=== PATIENT | female | born 1980 | race Caucasian/White ===

== ENCOUNTER 2018-02-15 11:52 | Inpatient (IN) ==
--- NOTE | 2018-02-15 12:02 | Emergency Department Note ---
Disposition Clinical Impression: Suicidal ideation, Homicidal ideation Disposition: Admitted As Inpatient Condition: Fair Time of Disposition: 16:33 General Adult HPI - General Stated complaint: Hasn't been taking meds Time Seen by Provider: 02/15/18 12:00 Source: patient Mode of arrival: ambulatory Limitations: no limitations Nursing Notes Reviewed: Yes Vital Signs Reviewed: Yes - History of Present Illness HPI Narrative: I have re-performed and reviewed the history documented by the medical student, and I confirm its accuracy except as noted below Onset (ago): day(s) Consistency: constant Improves with: nothing Worsens with: nothing Associated symptoms: Reports: denies other symptoms. Denies: chest pain, cough , fever/chills, malaise, nausea/vomiting, shortness of breath, weakness Treatments Prior to Arrival: none - Related Data Home Medications Medication Instructions Recorded Confirmed No Known Home Drugs 02/15/18 02/15/18 Allergies Allergy/AdvReac Type Severity Reaction Status Date / Time No Known Allergies Allergy Verified 02/15/18 16:21 All systems ED: reviewed and negative except as stated. Past Medical History - Past Medical History Attestation: Yes The following information was validated with the patient. 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 - Social History Smoking Status: Current every day smoker Smokeless Tobacco Status: No Alcohol use: Reports: occasionally Drug use: Reports: none Physical Exam - General Limitations: no limitations General appearance: alert, in no apparent distress - Head Head exam: atraumatic, normocephalic, normal inspection - Eye Eye exam: Present: EOMI - ENT ENT exam: normal exam, normal oropharynx, mucous membranes moist - Neck Neck exam: Present: normal inspection, full ROM, trachea midline - Chest Chest inspection: Present: normal inspection, symmetric chest wall rise - Respiratory Respiratory exam: Present: normal lung sounds bilaterally - Cardiovascular Cardiovascular exam: Present: regular rate, normal rhythm, normal heart sounds - Abdominal Exam Abdominal exam: Present: soft, Non-Tender. Absent: tenderness, distention, guarding, rebound, rigidity - Extremities Exam Extremities exam: Present: normal inspection, full ROM. Absent: tenderness, pedal edema - Back Exam Back exam: Present: normal inspection, full ROM. Absent: tenderness - Neurological Exam Neurological exam: Present: alert, oriented X3 - Psychiatric Psychiatric exam: Present: normal affect, normal mood - Skin Skin exam: Present: warm, dry, intact, normal color Course Course Narrative: Patient seen and examined. Patient very withdrawn during my conversation with her. Admits to suicidal and homicidal ideation. No plan. Patient has had prior admissions to as well as to other hospitals. Patient has been off her medications for the last several months. We will medically clear and discussed with psychiatry 1A - Reevaluation(s) Reevaluation #1: Patient has been medically cleared. Psychiatry was done to the bedside to see the patient. States she will be admitted. Admission order has been placed. They have requested her to have Benadryl 50 mg, Ativan 2 mg, Haldol 5 mg, orally. Time: 16:32 Vital Signs Temperature 98.5 F 02/15/18 11:54 Pulse Rate 82 02/15/18 11:54 Respiratory Rate 16 02/15/18 11:54 Blood Pressure 111/74 02/15/18 11:54 O2 Sat by Pulse Oximetry 98 02/15/18 11:54 Temperature 98.5 F 02/15/18 11:54 Pulse Rate 82 02/15/18 11:54 Respiratory Rate 16 02/15/18 11:54 Blood Pressure 111/74 02/15/18 11:54 O2 Sat by Pulse Oximetry 98 02/15/18 11:54 Oxygen Delivery Oxygen Delivery Room Air Medical Decision Making - Medical Records Medical records reviewed: Yes I reviewed the patient's medical records. - Lab Data Lab results reviewed: Yes I reviewed the patient's lab results. Result diagrams: 02/15/18 12:07 02/15/18 12:07 Lab Results 02/15/18 02/15/18 02/15/18 Range/Units 12:07 12:07 12:15 WBC 8.4 (4.3-11.1) K/mcL RBC 4.26 (3.82-4.97) M/mcL Hgb 14.6 (11.5-15.4) g/dL Hct 41.1 (35.3-44.9) % MCV 96.5 (83.0-100.0) fL MCH 34.3 H (28.0-33.3) pg MCHC 35.5 (31.6-35.5) g/dL RDW 11.9 (11.5-14.5) % Plt Count 317 (140-400) K/mcL MPV 9.4 (9.4-12.4) fL Immature Gran % 0.1 (0-4) % Seg Neutrophils % 59.4 % Lymphocytes % 28.7 % Monocytes % 9.0 % Eosinophils % 2.4 % Basophils % 0.4 % Neutrophils # 5.0 (1.6-8.9) K/mcL Lymphocytes # 2.4 (0.6-4.6) K/mcL Monocytes # 0.8 (0.0-1.3) K/mcL Eosinophils # 0.2 (0.0-0.6) K/mcL Basophils # 0.0 (0.0-0.2) K/mcL Sodium 137 (136-145) mEq/L Potassium 4.4 (3.5-5.1) mEq/L Chloride 107 (98-107) mEq/L Carbon Dioxide 24 (23-29) mEq/L BUN 10 (6-20) mg/dL Creatinine 0.78 (0.60-1.20) mg/dL Est GFR ( Amer) > 60 (> 60) Est GFR (Non-Af Amer) > 60 (> 60) BUN/Creatinine Ratio 13 (6-26) Glucose 84 (70-105) mg/dL Calculated Osmolality 282 (280-300) Calcium 9.3 (8.6-10.3) mg/dL TSH 0.565 (0.340-5.600) mcIU/mL Urine Color Dark Yellow (Yellow) Urine Clarity Slightly Hazy (Clear) Urine pH 6.5 (5.0-8.0) pH Units Ur Specific [place] > 1.030 H (1.010-1.025) Urine Protein Trace (Neg-Trace) mg/dL Urine Glucose (UA) Normal (Normal) mg/dL Urine Ketones 80 H (Negative) mg/dL Urine Blood Negative (Negative) Urine Nitrite Negative (Negative) Urine Bilirubin Small H (Negative) Urine Urobilinogen Normal (Normal) mg/dL Ur Leukocyte Esterase Small H (Negative) Urine Microscopic RBC 5-15 H (0-3) per hpf Urine Microscopic WBC 5-15 H (0-3) per hpf Ur Squamous Epith Cells Many H (None-Few) per lpf Urine Bacteria Few (None-Few) per hpf Hyaline Casts None Seen (None-Few) per lpf Salicylates < 2.5 L (15.0-30.0) mg/dL Urine Opiates Screen (Hnjchd=992) ng/mL Acetaminophen < 10 L (10-20) mcg/mL Ur Barbiturates Screen (Kwembv=279) ng/mL Ur Phencyclidine Scrn (Cutoff=25) ng/mL Ur Amphetamines Screen (Owcurs=3305) ng/mL U Benzodiazepines Scrn (Eiklzu=174) ng/mL Urine Cocaine Screen (Cutoff= 300) ng/mL U Marijuana (THC) Screen (Cutoff = 50) ng/mL Ur Drug Screen Interp Ethyl Alcohol < 10 (Less than 10) mg/dL 02/15/18 Range/Units 12:17 WBC (4.3-11.1) K/mcL RBC (3.82-4.97) M/mcL Hgb (11.5-15.4) g/dL Hct (35.3-44.9) % MCV (83.0-100.0) fL MCH (28.0-33.3) pg MCHC (31.6-35.5) g/dL RDW (11.5-14.5) % Plt Count (140-400) K/mcL MPV (9.4-12.4) fL Immature Gran % (0-4) % Seg Neutrophils % % Lymphocytes % % Monocytes % % Eosinophils % % Basophils % % Neutrophils # (1.6-8.9) K/mcL Lymphocytes # (0.6-4.6) K/mcL Monocytes # (0.0-1.3) K/mcL Eosinophils # (0.0-0.6) K/mcL Basophils # (0.0-0.2) K/mcL Sodium (136-145) mEq/L Potassium (3.5-5.1) mEq/L Chloride (98-107) mEq/L Carbon Dioxide (23-29) mEq/L BUN (6-20) mg/dL Creatinine (0.60-1.20) mg/dL Est GFR ( Amer) (> 60) Est GFR (Non-Af Amer) (> 60) BUN/Creatinine Ratio (6-26) Glucose (70-105) mg/dL Calculated Osmolality (280-300) Calcium (8.6-10.3) mg/dL TSH (0.340-5.600) mcIU/mL Urine Color (Yellow) Urine Clarity (Clear) Urine pH (5.0-8.0) pH Units Ur Specific [place] (1.010-1.025) Urine Protein (Neg-Trace) mg/dL Urine Glucose (UA) (Normal) mg/dL Urine Ketones (Negative) mg/dL Urine Blood (Negative) Urine Nitrite (Negative) Urine Bilirubin (Negative) Urine Urobilinogen (Normal) mg/dL Ur Leukocyte Esterase (Negative) Urine Microscopic RBC (0-3) per hpf Urine Microscopic WBC (0-3) per hpf Ur Squamous Epith Cells (None-Few) per lpf Urine Bacteria (None-Few) per hpf Hyaline Casts (None-Few) per lpf Salicylates (15.0-30.0) mg/dL Urine Opiates Screen Negative (Iqnmws=233) ng/mL Acetaminophen (10-20) mcg/mL Ur Barbiturates Screen Negative (Azxtnp=067) ng/mL Ur Phencyclidine Scrn Negative (Cutoff=25) ng/mL Ur Amphetamines Screen Negative (Ndtjwz=2331) ng/mL U Benzodiazepines Scrn Negative (Txvakz=428) ng/mL Urine Cocaine Screen Negative (Cutoff= 300) ng/mL U Marijuana (THC) Screen Positive H (Cutoff = 50) ng/mL Ur Drug Screen Interp See Below Ethyl Alcohol (Less than 10) mg/dL
--- NOTE | 2018-02-15 12:02 | Emergency Department Note ---
Disposition Clinical Impression: Suicidal ideation, Homicidal ideation Disposition: Admitted As Inpatient Condition: Fair General Adult HPI - General Stated complaint: Hasn't been taking meds Time Seen by Provider: 02/15/18 12:00 - Related Data Home Medications Medication Instructions Recorded Confirmed No Known Home Drugs 02/15/18 02/15/18 Allergies Allergy/AdvReac Type Severity Reaction Status Date / Time No Known Allergies Allergy Verified 02/15/18 16:21 Past Medical History - Past Medical History Medical history: Reports: no medical history Surgical history: Reports: other Psychiatric history: Reports: anxiety, bipolar, depression, panic disorder, PTSD , schizophrenia, 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 - Social History Smoking Status: Current every day smoker Smokeless Tobacco Status: No Alcohol use: Reports: occasionally Drug use: Reports: none Course Vital Signs Temperature 98.5 F 02/15/18 11:54 Pulse Rate 82 02/15/18 11:54 Respiratory Rate 16 02/15/18 11:54 Blood Pressure 111/74 02/15/18 11:54 O2 Sat by Pulse Oximetry 98 02/15/18 11:54 Temperature 98.5 F 02/15/18 11:54 Pulse Rate 82 02/15/18 11:54 Respiratory Rate 16 02/15/18 11:54 Blood Pressure 111/74 02/15/18 11:54 O2 Sat by Pulse Oximetry 98 02/15/18 11:54 Oxygen Delivery Oxygen Delivery Room Air Medical Decision Making - Lab Data Result diagrams: 02/15/18 12:07 02/15/18 12:07 Lab Results 02/15/18 02/15/18 02/15/18 Range/Units 12:07 12:07 12:15 WBC 8.4 (4.3-11.1) K/mcL RBC 4.26 (3.82-4.97) M/mcL Hgb 14.6 (11.5-15.4) g/dL Hct 41.1 (35.3-44.9) % MCV 96.5 (83.0-100.0) fL MCH 34.3 H (28.0-33.3) pg MCHC 35.5 (31.6-35.5) g/dL RDW 11.9 (11.5-14.5) % Plt Count 317 (140-400) K/mcL MPV 9.4 (9.4-12.4) fL Immature Gran % 0.1 (0-4) % Seg Neutrophils % 59.4 % Lymphocytes % 28.7 % Monocytes % 9.0 % Eosinophils % 2.4 % Basophils % 0.4 % Neutrophils # 5.0 (1.6-8.9) K/mcL Lymphocytes # 2.4 (0.6-4.6) K/mcL Monocytes # 0.8 (0.0-1.3) K/mcL Eosinophils # 0.2 (0.0-0.6) K/mcL Basophils # 0.0 (0.0-0.2) K/mcL Sodium 137 (136-145) mEq/L Potassium 4.4 (3.5-5.1) mEq/L Chloride 107 (98-107) mEq/L Carbon Dioxide 24 (23-29) mEq/L BUN 10 (6-20) mg/dL Creatinine 0.78 (0.60-1.20) mg/dL Est GFR ( Amer) > 60 (> 60) Est GFR (Non-Af Amer) > 60 (> 60) BUN/Creatinine Ratio 13 (6-26) Glucose 84 (70-105) mg/dL Calculated Osmolality 282 (280-300) Calcium 9.3 (8.6-10.3) mg/dL TSH 0.565 (0.340-5.600) mcIU/mL Urine Color Dark Yellow (Yellow) Urine Clarity Slightly Hazy (Clear) Urine pH 6.5 (5.0-8.0) pH Units Ur Specific [place] > 1.030 H (1.010-1.025) Urine Protein Trace (Neg-Trace) mg/dL Urine Glucose (UA) Normal (Normal) mg/dL Urine Ketones 80 H (Negative) mg/dL Urine Blood Negative (Negative) Urine Nitrite Negative (Negative) Urine Bilirubin Small H (Negative) Urine Urobilinogen Normal (Normal) mg/dL Ur Leukocyte Esterase Small H (Negative) Urine Microscopic RBC 5-15 H (0-3) per hpf Urine Microscopic WBC 5-15 H (0-3) per hpf Ur Squamous Epith Cells Many H (None-Few) per lpf Urine Bacteria Few (None-Few) per hpf Hyaline Casts None Seen (None-Few) per lpf Salicylates < 2.5 L (15.0-30.0) mg/dL Urine Opiates Screen (Ckhezp=716) ng/mL Acetaminophen < 10 L (10-20) mcg/mL Ur Barbiturates Screen (Woaduq=801) ng/mL Ur Phencyclidine Scrn (Cutoff=25) ng/mL Ur Amphetamines Screen (Pnolue=1456) ng/mL U Benzodiazepines Scrn (Zrqgdx=776) ng/mL Urine Cocaine Screen (Cutoff= 300) ng/mL U Marijuana (THC) Screen (Cutoff = 50) ng/mL Ur Drug Screen Interp Ethyl Alcohol < 10 (Less than 10) mg/dL 02/15/18 Range/Units 12:17 WBC (4.3-11.1) K/mcL RBC (3.82-4.97) M/mcL Hgb (11.5-15.4) g/dL Hct (35.3-44.9) % MCV (83.0-100.0) fL MCH (28.0-33.3) pg MCHC (31.6-35.5) g/dL RDW (11.5-14.5) % Plt Count (140-400) K/mcL MPV (9.4-12.4) fL Immature Gran % (0-4) % Seg Neutrophils % % Lymphocytes % % Monocytes % % Eosinophils % % Basophils % % Neutrophils # (1.6-8.9) K/mcL Lymphocytes # (0.6-4.6) K/mcL Monocytes # (0.0-1.3) K/mcL Eosinophils # (0.0-0.6) K/mcL Basophils # (0.0-0.2) K/mcL Sodium (136-145) mEq/L Potassium (3.5-5.1) mEq/L Chloride (98-107) mEq/L Carbon Dioxide (23-29) mEq/L BUN (6-20) mg/dL Creatinine (0.60-1.20) mg/dL Est GFR ( Amer) (> 60) Est GFR (Non-Af Amer) (> 60) BUN/Creatinine Ratio (6-26) Glucose (70-105) mg/dL Calculated Osmolality (280-300) Calcium (8.6-10.3) mg/dL TSH (0.340-5.600) mcIU/mL Urine Color (Yellow) Urine Clarity (Clear) Urine pH (5.0-8.0) pH Units Ur Specific [place] (1.010-1.025) Urine Protein (Neg-Trace) mg/dL Urine Glucose (UA) (Normal) mg/dL Urine Ketones (Negative) mg/dL Urine Blood (Negative) Urine Nitrite (Negative) Urine Bilirubin (Negative) Urine Urobilinogen (Normal) mg/dL Ur Leukocyte Esterase (Negative) Urine Microscopic RBC (0-3) per hpf Urine Microscopic WBC (0-3) per hpf Ur Squamous Epith Cells (None-Few) per lpf Urine Bacteria (None-Few) per hpf Hyaline Casts (None-Few) per lpf Salicylates (15.0-30.0) mg/dL Urine Opiates Screen Negative (Hnuvqc=576) ng/mL Acetaminophen (10-20) mcg/mL Ur Barbiturates Screen Negative (Obspgw=415) ng/mL Ur Phencyclidine Scrn Negative (Cutoff=25) ng/mL Ur Amphetamines Screen Negative (Ddvqhv=9709) ng/mL U Benzodiazepines Scrn Negative (Asqhnw=289) ng/mL Urine Cocaine Screen Negative (Cutoff= 300) ng/mL U Marijuana (THC) Screen Positive H (Cutoff = 50) ng/mL Ur Drug Screen Interp See Below Ethyl Alcohol (Less than 10) mg/dL Attestation Statement - Attestation Attestation: I examined this patient and my medical decision-making was reviewed with the INSTRUCTOR DRAMATIC ARTS/PA/Advanced Practice Nurse/Resident Physician. I agree with the documented findings, disposition and treatment plan as described except to the extent set forth below. I did see the patient immediately upon arrival and also spoke with paramedics. I saw her in the [facility]. I did speak with her. Does have suicidal ideation. History of schizophrenia and has not taken any medications in the last 2 months. Reportedly lives in [place] but was picked up today at her stepmother' s house. She is resting comfortably, breathing comfortably, skin is pink. Initially told me she did try to end her life today then told another caregiver that she did not. Further evaluation in progress. [id number]
--- NOTE | 2018-02-15 12:15 | Emergency Department Note ---
Disposition Clinical Impression: Suicidal ideation, Homicidal ideation Disposition: Admitted As Inpatient Condition: Fair General Adult HPI - General Chief complaint: ED Psychiatric Symptoms Stated complaint: Hasn't been taking meds Time Seen by Provider: 02/15/18 12:00 Source: patient Mode of arrival: ambulatory Limitations: no limitations - History of Present Illness HPI Narrative: Pt is a 38 year old female with past psych history significant for schizophrenia , bipolar, PTSD, anxiety that presents from home for suicidal and homicidal ideations. Pt reports that she has not been taking her medications for approximately 2 months as she ran out of them. Per family report, pt has been hiding knives around the house and has been stating that she wants to kill herself and others. Pt reportedly tried to harm herself this morning, unknown how she tried to do this and she denies trying to hurt herself at this time. She does state that she wishes to kill herself, but does not have a plan. Denies history of any suicide attempts. Pt also states that she wishes to kill other people, although she states she has no specific person in mind and has no plan. Denies visual or auditory hallucinations. Pt admits to smoking marijuana this morning but denies other drugs or alcohol consumption. Pain Scale: 0 - Related Data Home Medications Medication Instructions Recorded Confirmed No Known Home Drugs 02/15/18 02/15/18 Allergies Allergy/AdvReac Type Severity Reaction Status Date / Time No Known Allergies Allergy Verified 02/15/18 16:21 All systems ED: reviewed and negative except as stated. Neurological: Reports: headache Psychiatric: Reports: anxiety, depression, suicidal thoughts, homicidal thoughts. Denies: auditory hallucinations, visual hallucinations Past Medical History - Past Medical History Medical history: Reports: no medical history Surgical history: Reports: other Psychiatric history: Reports: anxiety, bipolar, depression, panic disorder, PTSD , schizophrenia, other DISH UP PERSON history: Reports: no DISH UP PERSON history - Social History Smoking Status: Current every day smoker Smokeless Tobacco Status: No Alcohol use: Reports: occasionally Drug use: Reports: none Physical Exam - General Limitations: no limitations General appearance: alert, in no apparent distress - Head Head exam: atraumatic, normocephalic - Respiratory Respiratory exam: Present: normal lung sounds bilaterally. Absent: respiratory distress, wheezes - Cardiovascular Cardiovascular exam: Present: regular rate, normal rhythm - Abdominal Exam Abdominal exam: Present: soft, Non-Tender - Neurological Exam Neurological exam: Present: alert, oriented X3 - Psychiatric Psychiatric exam: Present: depressed, flat affect, homicidal ideation, suicidal ideation. Absent: agitated, anxious, manic - Skin Skin exam: Present: warm, dry, intact Course Vital Signs Temperature 98.5 F 02/15/18 11:54 Pulse Rate 82 02/15/18 11:54 Respiratory Rate 16 02/15/18 11:54 Blood Pressure 111/74 02/15/18 11:54 O2 Sat by Pulse Oximetry 98 02/15/18 11:54 Temperature 98.5 F 02/15/18 11:54 Pulse Rate 82 02/15/18 11:54 Respiratory Rate 16 02/15/18 11:54 Blood Pressure 111/74 02/15/18 11:54 O2 Sat by Pulse Oximetry 98 02/15/18 11:54 Oxygen Delivery Oxygen Delivery Room Air Medical Decision Making - Lab Data Result diagrams: 02/15/18 12:07 02/15/18 12:07 Lab Results 02/15/18 02/15/18 02/15/18 Range/Units 12:07 12:07 12:15 WBC 8.4 (4.3-11.1) K/mcL RBC 4.26 (3.82-4.97) M/mcL Hgb 14.6 (11.5-15.4) g/dL Hct 41.1 (35.3-44.9) % MCV 96.5 (83.0-100.0) fL MCH 34.3 H (28.0-33.3) pg MCHC 35.5 (31.6-35.5) g/dL RDW 11.9 (11.5-14.5) % Plt Count 317 (140-400) K/mcL MPV 9.4 (9.4-12.4) fL Immature Gran % 0.1 (0-4) % Seg Neutrophils % 59.4 % Lymphocytes % 28.7 % Monocytes % 9.0 % Eosinophils % 2.4 % Basophils % 0.4 % Neutrophils # 5.0 (1.6-8.9) K/mcL Lymphocytes # 2.4 (0.6-4.6) K/mcL Monocytes # 0.8 (0.0-1.3) K/mcL Eosinophils # 0.2 (0.0-0.6) K/mcL Basophils # 0.0 (0.0-0.2) K/mcL Sodium 137 (136-145) mEq/L Potassium 4.4 (3.5-5.1) mEq/L Chloride 107 (98-107) mEq/L Carbon Dioxide 24 (23-29) mEq/L BUN 10 (6-20) mg/dL Creatinine 0.78 (0.60-1.20) mg/dL Est GFR ( Amer) > 60 (> 60) Est GFR (Non-Af Amer) > 60 (> 60) BUN/Creatinine Ratio 13 (6-26) Glucose 84 (70-105) mg/dL Calculated Osmolality 282 (280-300) Calcium 9.3 (8.6-10.3) mg/dL TSH 0.565 (0.340-5.600) mcIU/mL Urine Color Dark Yellow (Yellow) Urine Clarity Slightly Hazy (Clear) Urine pH 6.5 (5.0-8.0) pH Units Ur Specific [place] > 1.030 H (1.010-1.025) Urine Protein Trace (Neg-Trace) mg/dL Urine Glucose (UA) Normal (Normal) mg/dL Urine Ketones 80 H (Negative) mg/dL Urine Blood Negative (Negative) Urine Nitrite Negative (Negative) Urine Bilirubin Small H (Negative) Urine Urobilinogen Normal (Normal) mg/dL Ur Leukocyte Esterase Small H (Negative) Urine Microscopic RBC 5-15 H (0-3) per hpf Urine Microscopic WBC 5-15 H (0-3) per hpf Ur Squamous Epith Cells Many H (None-Few) per lpf Urine Bacteria Few (None-Few) per hpf Hyaline Casts None Seen (None-Few) per lpf Salicylates < 2.5 L (15.0-30.0) mg/dL Urine Opiates Screen (Kgjnpw=516) ng/mL Acetaminophen < 10 L (10-20) mcg/mL Ur Barbiturates Screen (Mntvwo=234) ng/mL Ur Phencyclidine Scrn (Cutoff=25) ng/mL Ur Amphetamines Screen (Lhbxpg=2231) ng/mL U Benzodiazepines Scrn (Xuacnq=340) ng/mL Urine Cocaine Screen (Cutoff= 300) ng/mL U Marijuana (THC) Screen (Cutoff = 50) ng/mL Ur Drug Screen Interp Ethyl Alcohol < 10 (Less than 10) mg/dL 02/15/18 Range/Units 12:17 WBC (4.3-11.1) K/mcL RBC (3.82-4.97) M/mcL Hgb (11.5-15.4) g/dL Hct (35.3-44.9) % MCV (83.0-100.0) fL MCH (28.0-33.3) pg MCHC (31.6-35.5) g/dL RDW (11.5-14.5) % Plt Count (140-400) K/mcL MPV (9.4-12.4) fL Immature Gran % (0-4) % Seg Neutrophils % % Lymphocytes % % Monocytes % % Eosinophils % % Basophils % % Neutrophils # (1.6-8.9) K/mcL Lymphocytes # (0.6-4.6) K/mcL Monocytes # (0.0-1.3) K/mcL Eosinophils # (0.0-0.6) K/mcL Basophils # (0.0-0.2) K/mcL Sodium (136-145) mEq/L Potassium (3.5-5.1) mEq/L Chloride (98-107) mEq/L Carbon Dioxide (23-29) mEq/L BUN (6-20) mg/dL Creatinine (0.60-1.20) mg/dL Est GFR ( Amer) (> 60) Est GFR (Non-Af Amer) (> 60) BUN/Creatinine Ratio (6-26) Glucose (70-105) mg/dL Calculated Osmolality (280-300) Calcium (8.6-10.3) mg/dL TSH (0.340-5.600) mcIU/mL Urine Color (Yellow) Urine Clarity (Clear) Urine pH (5.0-8.0) pH Units Ur Specific [place] (1.010-1.025) Urine Protein (Neg-Trace) mg/dL Urine Glucose (UA) (Normal) mg/dL Urine Ketones (Negative) mg/dL Urine Blood (Negative) Urine Nitrite (Negative) Urine Bilirubin (Negative) Urine Urobilinogen (Normal) mg/dL Ur Leukocyte Esterase (Negative) Urine Microscopic RBC (0-3) per hpf Urine Microscopic WBC (0-3) per hpf Ur Squamous Epith Cells (None-Few) per lpf Urine Bacteria (None-Few) per hpf Hyaline Casts (None-Few) per lpf Salicylates (15.0-30.0) mg/dL Urine Opiates Screen Negative (Hcnyqe=708) ng/mL Acetaminophen (10-20) mcg/mL Ur Barbiturates Screen Negative (Rxeeyo=041) ng/mL Ur Phencyclidine Scrn Negative (Cutoff=25) ng/mL Ur Amphetamines Screen Negative (Judbex=1729) ng/mL U Benzodiazepines Scrn Negative (Ydzozz=874) ng/mL Urine Cocaine Screen Negative (Cutoff= 300) ng/mL U Marijuana (THC) Screen Positive H (Cutoff = 50) ng/mL Ur Drug Screen Interp See Below Ethyl Alcohol (Less than 10) mg/dL
[2018-02-15 12:22] LABS: Basophils % 0.4 %; Eosinophils # 0.2 K/mcL (0.0-0.6); Eosinophils % 2.4 %; Hematocrit 41.1 % (35.3-44.9); Hemoglobin 14.6 g/dL (11.5-15.4); Immature Granulocytes % 0.1 % (0-4); Lymphocytes # 2.4 K/mcL (0.6-4.6); Lymphocytes % 28.7 %; Mean Corpuscular HGB Conc 35.5 g/dL (31.6-35.5); Mean Corpuscular Hemoglobin 34.3 pg (28.0-33.3); Mean Corpuscular Volume 96.5 fL (83.0-100.0); Mean Platelet Volume 9.4 fL (9.4-12.4); Monocytes # 0.8 K/mcL (0.0-1.3); Platelet Count 317 K/mcL (140-400); Red Blood Count 4.26 M/mcL (3.82-4.97); Red Cell Distribution Width 11.9 % (11.5-14.5); Segmented Neutrophils % 59.4 %
[2018-02-15 12:29] LABS: Bilirubin,Urine Small (Negative); Blood,Urine Negative (Negative); Color,Urine Dark Yellow (Yellow); Glucose,Urine (UA) Normal (Normal); Ketones,Urine 80 mg/dL (Negative); Leukocyte Esterase,Urine Small (Negative); Nitrite,Urine Negative (Negative); PH,Urine 6.5 pH Units (5.0-8.0); Protein,Urine Trace mg/dL (Neg-Trace); Specific Gravity,Urine > 1.030 (1.010-1.025); Urobilinogen,Urine Normal (Normal)
[2018-02-15 12:32] LABS: Bacteria,Urine Few per hpf (None-Few); Hyaline Casts,Urine None Seen per lpf (None-Few); Squamous Epithelial Cell,Urine Many per lpf (None-Few)
[2018-02-15 12:33] LABS: Clarity,Urine Slightly Hazy (Clear)
[2018-02-15 12:46] LABS: Acetaminophen < 10 mcg/mL (10-20); BUN/Creatinine Ratio 13 (6-26); Blood Urea Nitrogen 10 mg/dL (6-20); Calcium 9.3 mg/dL (8.6-10.3); Carbon Dioxide 24 mEq/L (23-29); Chloride 107 mEq/L (98-107); Ethanol < 10 mg/dL (Less than 10); Glucose 84 mg/dL (70-105); Osmolality,Calculated 282 (280-300); Potassium 4.4 mEq/L (3.5-5.1); Salicylate < 2.5 mg/dL (15.0-30.0); Sodium 137 mEq/L (136-145); eGFR For Non-African Americans > 60 (> 60)
[2018-02-15 12:51] LABS: Amphetamine Screen,Urine Negative ng/mL (Cutoff=1000); Barbiturate Screen,Urine Negative ng/mL (Cutoff=200); Benzodiazepines Screen,Urine Negative ng/mL (Cutoff=200); Cannabinoid Screen,Urine Positive ng/mL (Cutoff = 50); Cocaine Screen,Urine Negative ng/mL (Cutoff= 300); Opiate Screen,Urine Negative ng/mL (Cutoff=300); Phencyclidine Screen,Urine Negative ng/mL (Cutoff=25)
[2018-02-15 12:54] LABS: Thyroid Stimulating Hormone 0.565 mcIU/mL (0.340-5.600)
[2018-02-15] MEDS ORDERED: Haloperidol Oral Conc 10 MG/5 ML UDC PO ONE (15:51)
[2018-02-15] MEDS ORDERED: *HR* LORazepam 1 MG TABLET PO ONE (15:51)
[2018-02-15] MEDS ORDERED: *HR* LORazepam 2 MG/ML VIAL IM PRN (19:32)
[2018-02-15] MEDS ORDERED: Acetaminophen 325 MG TABLET PO PRN (19:32)
[2018-02-15] MEDS ORDERED: *HR* LORazepam 1 MG TABLET PO PRN (19:32)
[2018-02-15] MEDS ORDERED: Haloperidol Lactate 5 MG/ML VIAL IM PRN (19:32)
[2018-02-15] MEDS ORDERED: MOM Conc 10 ML UD.LIQ PO PRN (19:32)
[2018-02-15] MEDS ORDERED: Mag Hydrox/Al Hydrox/Simeth 30 ML UDC PO PRN (19:32)
[2018-02-16] MEDS: Nicotine 2 MG GUM BC PRN (08:50)
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
[2018-02-16] MEDS: hydrOXYzine pamoate 25 MG CAPSULE PO PRN (11:31)
[2018-02-16] MEDS: Gabapentin 300 MG CAPSULE PO SCH ×2 (14:05→20:15)
[2018-02-16] MEDS: traZODone 50 MG TABLET PO PRN (20:15)
[2018-02-17] MEDS: Gabapentin 300 MG CAPSULE PO SCH ×3 (08:49→20:06)
[2018-02-17] MEDS: Nicotine 2 MG GUM BC PRN ×2 (08:52→18:54)
--- NOTE | 2018-02-17 09:53 | Psychiatry Progress Note ---
Date of Encounter: 02/17/18 Time of Encounter: 09:48 Subjective Interval history: Client focused on obtaining meds for ADHD today. States her thoughts are scattered and she cannot concentrate or focus. Discussed getting her thought disorder under control first. Client denies AH/VH although she appears psychotic. Also denies SI/HI although she was endorsing both prior to admission. Off meds for a couple of months before coming in. Meds just restarted so will give them time to work. Invega seems to be the primary medication and client told the last provider she would be open to a long acting injection. Working on linkage. History of substance abuse issues. Tox screen only positive for THC this time. Lives with father but he was only able to give perinatal social worker limited additional information. Client appears distressed today. Claims her mind jumps from one topic to the next. Likely experiencing racing thoughts. On several meds so will give them time to take effect. Review of Systems Constitutional: Denies: fever, chills, weakness, weight change Eyes: Denies: eye pain, vision change Ears, Nose, Throat: Denies: ear pain, throat pain, dental pain, hearing loss, congestion Cardiovascular: Denies: chest pain, palpitations, dyspnea on exertion Respiratory: Denies: cough, dyspnea, wheezes Gastrointestinal: Denies: abdominal pain, nausea, vomiting, diarrhea, constipation Musculoskeletal: Denies: joint swelling, joint pain Neurological: Denies: headache, weakness, numbness, memory loss Psychiatric: Reports: depression, anxiety, auditory hallucinations, visual hallucinations, difficulty concentrating Results - Vital Signs Vital Signs: Temp Pulse Resp BP Pulse Ox 97.7 F 88 14 106/59 98 02/17/18 09:00 02/17/18 09:00 02/17/18 09:00 02/17/18 09:00 02/15/18 11:54 Assessment and Plan (1) Schizoaffective disorder Current visit: Yes Status: Acute Plan: Continue hospitalization, Close observation, Suicide Precautions per unit protocol, Encourage participation in unit milieu, Group Therapy, Monitor sleep, Monitor appetite Risks, benefits, side effects, alternatives discussed w/pt: Yes Patient agreeable to treatment: Yes Qualifiers: Schizoaffective disorder type: bipolar Qualified Code(s): F25.0 - Schizoaffective disorder, bipolar type Consult Discharge Plan - Plan Referrals: Jared Bradshaw [facility] [Outside] Psychiatry Exam - Constitutional Vitals: Temp Pulse Resp BP Pulse Ox 97.7 F 88 14 106/59 98 02/17/18 09:00 02/17/18 09:00 02/17/18 09:00 02/17/18 09:00 02/15/18 11:54 General appearance: unkempt, disheveled - Musculoskeletal Gait: normal Station: relaxed Strength & Tone: normal for patient - Psychiatric Patient Orientation: Yes Person, Yes Time, Yes Place Level of alertness: Alert Behavior: anxious, restless Psychomotor activity: Normal Eye Contact: Maintains Eye Contact Mood Description: Irritable Affect description: congruent with mood Speech Volume: Normal Speech pattern: normal rate, normal rhythm, normal tone, fluent, spontaneous Language & Vocabulary: consistent with education Thought Process: Racing Thought Content: No Suicidal ideation, No Homicidal ideation, No Overt delusions Perceptual Disturbances: Yes Reacting to internal stimuli Attention Span Ability: Unable to Focus, Unable to Sustain Attention Memory Description: Grossly Intact Patient Reliability: Questionable Historian Fund of knowledge: Yes average Intelligence Estimate: Average Judgment: Limited Insight: Minimal
[2018-02-17] MEDS: hydrOXYzine pamoate 25 MG CAPSULE PO PRN (10:07)
[2018-02-17] MEDS: traZODone 50 MG TABLET PO PRN (20:06)
[2018-02-18] MEDS: Gabapentin 300 MG CAPSULE PO SCH ×3 (08:47→20:38)
[2018-02-18] MEDS: hydrOXYzine pamoate 25 MG CAPSULE PO PRN (08:48)
[2018-02-18] MEDS: Nicotine 2 MG GUM BC PRN ×3 (08:51→17:56)
[2018-02-18] MEDS ORDERED: Ibuprofen 400 MG TABLET PO PRN (09:51)
--- NOTE | 2018-02-18 09:58 | Psychiatry Progress Note ---
Date of Encounter: 02/18/18 Time of Encounter: 09:53 Subjective Interval history: Client is much clearer today. Staff report she had a good night. No longer looks psychotic. However, she is very med seeking. Today she is focused on getting something for her "nerves." Yesterday she wanted meds for ADHD. Discussed options. Focused on getting benzos but did not get upset when this senior writer said that would not be possible. Client indicated she took Cymbalta in retirement with positive results. Agreeable to switching to that from Zoloft. Also willing to try Buspar even though she reported it did not help much in the past. Asked staff last night when she would be going home but did not seem invested in leaving today when speaking with this senior writer. Since meds are changing will not look at discharge today. Client also very vague as to where she will be going at the time of discharge. Had been living with father but today she reported living with sister. States father and sister live an hour apart and "I don't like talking about family stuff." Still in process of being linked with a provider. Denies SI/HI. May be ready to go early this week. Review of Systems Constitutional: Denies: fever, chills, weakness, weight change Eyes: Denies: eye pain, vision change Ears, Nose, Throat: Denies: ear pain, throat pain, dental pain, hearing loss, congestion Cardiovascular: Denies: chest pain, palpitations, dyspnea on exertion Respiratory: Denies: cough, dyspnea, wheezes Gastrointestinal: Denies: abdominal pain, nausea, vomiting, diarrhea, constipation Musculoskeletal: Denies: joint swelling, joint pain Neurological: Denies: headache, weakness, numbness, memory loss Psychiatric: Reports: depression, anxiety, auditory hallucinations, visual hallucinations, difficulty concentrating Results - Vital Signs Vital Signs: Temp Pulse Resp BP Pulse Ox 97.5 F L 94 14 89/62 98 02/18/18 09:00 02/18/18 09:00 02/18/18 09:00 02/18/18 09:00 02/15/18 11:54 Assessment and Plan (1) Schizoaffective disorder Current visit: Yes Status: Acute Plan: Continue hospitalization, Close observation, Suicide Precautions per unit protocol, Encourage participation in unit milieu, Group Therapy, Monitor sleep, Monitor appetite Risks, benefits, side effects, alternatives discussed w/pt: Yes Patient agreeable to treatment: Yes Qualifiers: Schizoaffective disorder type: bipolar Qualified Code(s): F25.0 - Schizoaffective disorder, bipolar type Consult Discharge Plan - Plan Referrals: Jared Bradshaw [facility] [Outside] Psychiatry Exam - Constitutional Vitals: Temp Pulse Resp BP Pulse Ox 97.5 F L 94 14 89/62 98 02/18/18 09:00 02/18/18 09:00 02/18/18 09:00 02/18/18 09:00 02/15/18 11:54 General appearance: age & developmentally appropriate, unkempt - Musculoskeletal Gait: normal Station: relaxed Strength & Tone: normal for patient - Psychiatric Patient Orientation: Yes Person, Yes Time, Yes Place Level of alertness: Alert Behavior: calm, cooperative Psychomotor activity: Normal Eye Contact: Maintains Eye Contact Mood Description: Depressed, Anxious, Irritable Affect description: congruent with mood Speech Volume: Normal Speech pattern: normal rate, normal rhythm, normal tone, fluent, spontaneous Language & Vocabulary: consistent with education Thought Process: Linear, Goal Oriented Thought Content: No Suicidal ideation, No Homicidal ideation, No Overt delusions Perceptual Disturbances: No Auditory hallucinations, No Visual hallucinations Attention Span Ability: Capable of Focused Attention Memory Description: Grossly Intact Patient Reliability: Questionable Historian Fund of knowledge: Yes abstraction ability, Yes aware of current events Intelligence Estimate: Average Judgment: Limited Insight: Minimal
[2018-02-18] MEDS ORDERED: hydrOXYzine pamoate 25 MG CAPSULE PO PRN (09:59)
[2018-02-18] MEDS: traZODone 50 MG TABLET PO PRN (20:38)
[2018-02-19] MEDS: Gabapentin 300 MG CAPSULE PO SCH (08:48)
[2018-02-19] MEDS: Nicotine 2 MG GUM BC PRN ×2 (08:50→13:33)
[2018-02-19 09:20] VITALS: BP 103/69
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
--- NOTE | 2018-02-19 14:09 | Discharge Summary ---
Date of Encounter: 02/19/18 Time of Encounter: 14:00 Diagnosis - Discharge Diagnosis (1) Opioid dependence in remission Status: Resolved (2) Cocaine dependence in remission Status: Resolved (3) Chronic pain Status: Suspected Qualifiers: Chronic pain type: chronic pain syndrome Qualified Code(s): G89.4 - Chronic pain syndrome (4) Suicidal ideation Priority: Secondary Status: Acute (5) Homicidal ideation Priority: Secondary Status: Acute (6) Schizoaffective disorder Priority: Primary Status: Acute Qualifiers: Schizoaffective disorder type: bipolar Qualified Code(s): F25.0 - Schizoaffective disorder, bipolar type Medications - Discharge Medications Prescriptions: Buspirone HCl [Buspar] 7.5 mg PO BID 30 Days #60 tablet DULoxetine [Cymbalta] 30 mg PO DAILY 30 Days #30 capsule. Gabapentin [Neurontin] 400 mg PO TID 30 Days #90 capsule Paliperidone [Invega] 9 mg PO DAILY 30 Days #30 tab.er.24 Buspirone HCl [Buspar] 7.5 mg PO BID 30 Days #60 tablet 02/19/18 [Rx] DULoxetine [Cymbalta] 30 mg PO DAILY 30 Days #30 capsule. 02/19/18 [Rx] Gabapentin [Neurontin] 400 mg PO TID 30 Days #90 capsule 02/19/18 [Rx] Paliperidone [Invega] 9 mg PO DAILY 30 Days #30 tab.er.24 02/19/18 [Rx] 3 Allergy/AdvReac Type Severity Reaction Status Date / Time No Known Allergies Allergy Verified 02/15/18 16:21 Provider Date of admission: 02/15/18 15:57 Primary care physician: PCP NONE Discharging clinician: Marcello Garces Psychiatry Exam - Constitutional Vitals: Temp Pulse Resp BP Pulse Ox 98.7 F 90 16 103/69 98 02/19/18 09:00 02/19/18 09:00 02/19/18 09:00 02/19/18 09:00 02/15/18 11:54 General appearance: age & developmentally appropriate, well-groomed, well- nourished - Musculoskeletal Gait: normal Station: relaxed Strength & Tone: normal for patient - Psychiatric Patient Orientation: Yes Person, Yes Time, Yes Place Level of alertness: Alert Behavior: calm, cooperative Psychomotor activity: Normal Eye Contact: Maintains Eye Contact Mood Description: Euthymic/stable Affect description: congruent with mood, full range Speech Volume: Normal Speech pattern: normal rate, normal rhythm, normal tone, fluent, spontaneous Language & Vocabulary: consistent with education Thought Process: Linear, Goal Oriented Thought Content: No Suicidal ideation, No Homicidal ideation, No Overt delusions Perceptual Disturbances: Yes Auditory hallucinations, No Visual hallucinations Attention Span Ability: Capable of Focused Attention Memory Description: Grossly Intact Patient Reliability: Questionable Historian Fund of knowledge: Yes below average Intelligence Estimate: Below Average Judgment: Limited Insight: Minimal Hospital Course Hospital course: Ms. Bernard is a 38 year old female The patient met with me in the referred to the discharge summary. To briefly summarize the patient is currently living in [facility]. She plans to reside with her sister Kiera. She plans to take medicines as prescribed the past she was on a long-acting injectable form of paliperidone. The patient plans to keep a clean and sober lifestyle. - Time Spent with Patient Total time spent providing and/or coordinating discharge services: Assessment and Plan - Patient/Caregiver Discharge Instructions Activity: resume usual activities as tolerated Diet: regular diet Additional Instructions: Alcohol and drugs of abuse including Suboxone - Follow up Plan Follow up with: [facility] [Outside] - 02/22/18 10:00 am (The above appointment is with Say, construction representative, to establish you as a client. When you come to your first appointment, you will be completing paperwork, meeting with an construction representative, and developing a treatment plan. You will receive follow- up appointments for on-going mental health services, which could include community support, individual counseling, and/or groups. You are also scheduled to see Kadeem Faye on 03/05/2018 at 8:00am for outpatient psychiatric assessment and medication management services. You must keep your intake appointment in order to see the psychiatric prescriber. Please bring your insurance card, social security card and photo ID to you first appointment. If you are unable to keep this appointment, 24 hour business notice of cancellation is expected. The above appointment(s) reflects first availability. You may contact the office regularly to check for cancellations that may allow you to be seen sooner.) Functional capacity at discharge: independent ambulation Overall status at discharge: Stable Disposition: Home, Self-Care Quality - Multiple Antipsychotics Patient discharged on 2 or more antipsychotic medications: No Procedures - Procedures Procedures: Medication Management, Crisis Stabilization, Supportive Therapy, Group Therapy, Psychoeducational Therapy
[2018-02-19] MEDS ORDERED: Gabapentin 400 MG CAPSULE PO SCH (15:00)
== END 2018-02-19 15:05 | disposition home or self-care (01) | DRG 885 ==
LOC: EMEROOARM 11:52 → 1ANU 15:57
PROVIDERS: ADMIT General Practice; ATTEND General Practice

== ENCOUNTER 2018-03-03 23:06 | Observation (INO) ==
--- NOTE | 2018-03-04 00:03 | Emergency Department Note ---
Disposition Clinical Impression: Suicidal ideation Disposition: Still a Patient Condition: Fair Referrals: NONE,PCP [Primary Care Provider] - Forms: ED Satisfaction Letter Time of Disposition: 00:48 Psych HPI - General Chief Complaint: ED Psychiatric Symptoms Stated Complaint: HI/SI Time Seen by Provider: 03/03/18 23:23 Source: family Nursing Notes Reviewed: Yes Vital Signs Reviewed: Yes - History of Present Illness HPI Narrative: 30-year-old female presents from her sister's home with sister bedside for evaluation. She is been hearing things which she refuses to further clarify. She called her sister that she needs to go to the emergency department for help in regards to the voices she is hearing and her thoughts. Otherwise, she has no complaints or concerns. Patient is a charge of her own medications. She indicates that she is not been taking her medications as prescribed. She admits to homicidality though will not further clarify. She has a hematoma on her forehead where she was hitting her head against a wall with suicidal ideation. Per the sister bedside, patient does not live in her own home. Rather, she moves from one family member's house to another. She stays at that house until the family ready to break after which she moves the next family members house and continues the rotation. Past psychiatric history: Schizophrenia, bipolar with manic tendencies, PTSD, anxiety. Prior history of suicidal and homicidal ideations. - Related Data Previous Rx's Medication Instructions Recorded Buspirone HCl [Buspar] 7.5 mg PO BID 30 Days #60 tablet 02/19/18 DULoxetine [Cymbalta] 30 mg PO DAILY 30 Days #30 02/19/18 capsule. Gabapentin [Neurontin] 400 mg PO TID 30 Days #90 capsule 02/19/18 Paliperidone [Invega] 9 mg PO DAILY 30 Days #30 tab.er.24 02/19/18 Allergies Allergy/AdvReac Type Severity Reaction Status Date / Time No Known Allergies Allergy Verified 02/15/18 16:21 All systems ED: reviewed and negative except as stated. 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 Head: atraumatic, normocephalic Eye: normal appearance, PERRL, EOMI, no scleral icterus, no conjunctival injection ENT: mucous membranes moist, normal external ear exam Neck: normal inspection, trachea midline, full ROM Chest: normal inspection, symmetric chest rise Respiratory: Good respiratory effort. Bilateral breath sounds are clear without wheezing, crackles, or rhonchi. Cardiovascular: Regular rate and rhythm. No clicks, rubs, gallops, or murmors. Normal heart sounds. Abdomen: Bowel sounds present normoactive x-4 quadrants. Abdomen is soft, nondistended, and nontender. No guarding or rebound. No organomegaly noted. Musculoskeletal: Spontaneously moving all extremities. Skin: warm, dry, intact. Neuro: Alert and oriented x4. Sensation light touch intact. Psych: Patient's affect is not appropriate for situation. - General Limitations: altered mental status General appearance: anxious Course Course Narrative: Patient has no medical complaints. Suspect a manic episode of a bipolar secondary to medication noncompliance. Patient is a history of medication noncompliance which prompted prior psychiatric admissions. Will attempt medical clearance followed by request for mental health services evaluation. Serum hematology is unremarkable. Remainder of patient's medical workup is pending. Patient's care endorsed to the night team, Dr. Lisa Flores and Dr. Katie Espinoza. Pending: BMP, UA, Urine tox screen, 1A evaluation Recommended disposition: pending medical clearance and 1A evaluation. Vital Signs Temperature 98.1 F 03/03/18 23:18 Pulse Rate 131 03/03/18 23:18 Respiratory Rate 18 03/03/18 23:18 Blood Pressure 143/81 03/03/18 23:18 O2 Sat by Pulse Oximetry 97 03/03/18 23:18 Temperature 98.1 F 03/03/18 23:18 Pulse Rate 131 03/03/18 23:18 Respiratory Rate 18 03/03/18 23:18 Blood Pressure 143/81 03/03/18 23:18 O2 Sat by Pulse Oximetry 97 03/03/18 23:18 Oxygen Delivery Oxygen Delivery Room Air Psych - Lab Data Result diagrams: 03/03/18 23:57 Lab Results 03/03/18 Range/Units 23:57 WBC 13.2 H (4.3-11.1) K/mcL RBC 3.85 (3.82-4.97) M/mcL Hgb 13.1 (11.5-15.4) g/dL Hct 37.0 (35.3-44.9) % MCV 96.1 (83.0-100.0) fL MCH 34.0 H (28.0-33.3) pg MCHC 35.4 (31.6-35.5) g/dL RDW 12.8 (11.5-14.5) % Plt Count 343 (140-400) K/mcL MPV 8.9 L (9.4-12.4) fL Immature Gran % 0.2 (0-4) % Seg Neutrophils % 58.8 % Lymphocytes % 33.3 % Monocytes % 6.8 % Eosinophils % 0.6 % Basophils % 0.3 % Neutrophils # 7.8 (1.6-8.9) K/mcL Lymphocytes # 4.4 (0.6-4.6) K/mcL Monocytes # 0.9 (0.0-1.3) K/mcL Eosinophils # 0.1 (0.0-0.6) K/mcL Basophils # 0.0 (0.0-0.2) K/mcL Psychiatric Medical Clearance - Medical Clearance Checklist Medical History: No Social History Section defined Current Vitals: Last Vital Signs Temp 98.1 F 03/03/18 23:18 Pulse 131 03/03/18 23:18 Resp 18 03/03/18 23:18 BP 143/81 03/03/18 23:18 Pulse Ox 97 03/03/18 23:18 Abnormal Labs: Abnormal lab results WBC 13.2 K/mcL (4.3-11.1) H 03/03/18 23:57 MCH 34.0 pg (28.0-33.3) H 03/03/18 23:57 MPV 8.9 fL (9.4-12.4) L 03/03/18 23:57 Statement of Medical Clearance: I have evaluated the patient, reviewed diagnostic information, and certify that the patient's medical condition is sufficiently stable that transfer to the psychiatric unit does not pose a significant risk of deterioration.
--- NOTE | 2018-03-04 00:16 | Emergency Department Note ---
Disposition Clinical Impression: Suicidal ideation Disposition: Still a Patient Condition: Fair Referrals: NONE,PCP [Primary Care Provider] - Forms: ED Satisfaction Letter Psych HPI - General Chief Complaint: ED Psychiatric Symptoms Stated Complaint: HI/SI Time Seen by Provider: 03/03/18 23:23 Source: family - Related Data Previous Rx's Medication Instructions Recorded Buspirone HCl [Buspar] 7.5 mg PO BID 30 Days #60 tablet 02/19/18 DULoxetine [Cymbalta] 30 mg PO DAILY 30 Days #30 02/19/18 capsule. 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 history - Social History Smoking Status: Current every day smoker Smokeless Tobacco Status: No Alcohol use: Reports: occasionally Drug use: Reports: marijuana Physical Exam - General Limitations: altered mental status General appearance: anxious Course Vital Signs Temperature 98.1 F 03/03/18 23:18 Pulse Rate 131 03/03/18 23:18 Respiratory Rate 18 03/03/18 23:18 Blood Pressure 143/81 03/03/18 23:18 O2 Sat by Pulse Oximetry 97 03/03/18 23:18 Temperature 98.1 F 03/03/18 23:18 Pulse Rate 131 03/03/18 23:18 Respiratory Rate 18 03/03/18 23:18 Blood Pressure 143/81 03/03/18 23:18 O2 Sat by Pulse Oximetry 97 03/03/18 23:18 Oxygen Delivery Oxygen Delivery Room Air Psychiatric Medical Clearance - Medical Clearance Checklist Medical History: No Social History Section defined Current Vitals: Last Vital Signs Temp 98.1 F 03/03/18 23:18 Pulse 131 03/03/18 23:18 Resp 18 03/03/18 23:18 BP 143/81 03/03/18 23:18 Pulse Ox 97 09/08/18 23:18 Statement of Medical Clearance: I have evaluated the patient, reviewed diagnostic information, and certify that the patient's medical condition is sufficiently stable that transfer to the psychiatric unit does not pose a significant risk of deterioration. Attestation Statement - Attestation Attestation: I have discussed the case with the resident/mid level provider. I have personally performed a history, physical exam, and my own medical decision making. I have reviewed the note and agree with the findings and plan. Patient here with family for concern for auditory hallucinations causing SI HI. Patient has had frequent admissions for this in the past. Patient did hit her head against a wall. Patient has raised red nodule to the left forehead. Patient will undergo further psychiatric clearance labs as well as CT of her head. Patient signed out to the night team. Dr. Flores. Please see resident note for further details and disposition.
[2018-03-04 00:36] LABS: Basophils % 0.3 %; Eosinophils # 0.1 K/mcL (0.0-0.6); Eosinophils % 0.6 %; Hemoglobin 13.1 g/dL (11.5-15.4); Immature Granulocytes % 0.2 % (0-4); Lymphocytes # 4.4 K/mcL (0.6-4.6); Lymphocytes % 33.3 %; Mean Corpuscular HGB Conc 35.4 g/dL (31.6-35.5); Mean Corpuscular Volume 96.1 fL (83.0-100.0); Mean Platelet Volume 8.9 fL (9.4-12.4); Monocytes # 0.9 K/mcL (0.0-1.3); Monocytes % 6.8 %; Neutrophils # 7.8 K/mcL (1.6-8.9); Platelet Count 343 K/mcL (140-400); Red Blood Count 3.85 M/mcL (3.82-4.97); Red Cell Distribution Width 12.8 % (11.5-14.5); Segmented Neutrophils % 58.8 %
[2018-03-04 00:59] LABS: Acetaminophen < 10 mcg/mL (10-20); Carbon Dioxide 23 mEq/L (23-29); Chloride 109 mEq/L (98-107); Ethanol < 10 mg/dL (Less than 10); Glucose 87 mg/dL (70-105); Potassium 2.9 mEq/L (3.5-5.1); Salicylate < 2.5 mg/dL (15.0-30.0); Sodium 141 mEq/L (136-145); eGFR For Non-African Americans > 60 (> 60)
[2018-03-04] MEDS ORDERED: *HR* LORazepam 1 MG TABLET PO ONE (01:02)
[2018-03-04 01:12] LABS: BUN/Creatinine Ratio 18 (6-26); Blood Urea Nitrogen 12 mg/dL (6-20); Osmolality,Calculated 291 (280-300)
[2018-03-04 01:30] LABS: Bilirubin,Urine Moderate (Negative); Blood,Urine Small (Negative); Clarity,Urine Clear (Clear); Color,Urine Dark Yellow (Yellow); Glucose,Urine (UA) Normal (Normal); Ketones,Urine 15 mg/dL (Negative); Leukocyte Esterase,Urine Small (Negative); Nitrite,Urine Negative (Negative); Protein,Urine 30 mg/dL (Neg-Trace); Specific Gravity,Urine 1.023 (1.010-1.025); Urobilinogen,Urine Normal (Normal)
[2018-03-04 01:32] LABS: Bacteria,Urine None Seen per hpf (None-Few); Squamous Epithelial Cell,Urine Many per lpf (None-Few)
[2018-03-04 01:38] LABS: Hyaline Casts,Urine Few per lpf (None-Few)
[2018-03-04 01:41] LABS: Amphetamine Screen,Urine Positive ng/mL (Cutoff=1000); Barbiturate Screen,Urine Negative ng/mL (Cutoff=200); Benzodiazepines Screen,Urine Negative ng/mL (Cutoff=200); Cannabinoid Screen,Urine Positive ng/mL (Cutoff = 50); Cocaine Screen,Urine Negative ng/mL (Cutoff= 300); Opiate Screen,Urine Negative ng/mL (Cutoff=300); Phencyclidine Screen,Urine Negative ng/mL (Cutoff=25)
--- NOTE | 2018-03-04 05:28 | Emergency Department Note ---
Disposition Clinical Impression: Suicidal ideation Disposition: Admitted As Inpatient Condition: Fair Referrals: NONE,PCP [Primary Care Provider] - Forms: ED Satisfaction Letter Psych HPI - General Chief Complaint: ED Psychiatric Symptoms Stated Complaint: HI/SI Time Seen by Provider: 03/03/18 23:23 Source: family - Related Data Previous Rx's Medication Instructions Recorded Buspirone HCl [Buspar] 7.5 mg PO BID 30 Days #60 tablet 02/19/18 DULoxetine [Cymbalta] 30 mg PO DAILY 30 Days #30 02/19/18 capsule. 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 - Social History Smoking Status: Current every day smoker Smokeless Tobacco Status: No Alcohol use: Reports: occasionally Drug use: Reports: marijuana Physical Exam - General Limitations: altered mental status General appearance: anxious Course Vital Signs Temperature 98.1 F 03/03/18 23:18 Pulse Rate 131 03/03/18 23:18 Respiratory Rate 18 03/03/18 23:18 Blood Pressure 143/81 03/03/18 23:18 O2 Sat by Pulse Oximetry 97 03/03/18 23:18 Temperature 97.8 F 03/04/18 05:07 Pulse Rate 100 03/04/18 05:07 Respiratory Rate 16 03/04/18 05:07 Blood Pressure 137/74 03/04/18 05:07 O2 Sat by Pulse Oximetry 98 03/04/18 05:07 Oxygen Delivery Oxygen Delivery Room Air Psych - MDM Narrative Medical decision making narrative: 38-year-old female received in sign out pending behavioral health evaluation. Patient was mildly hypokalemic at 2.9. Behavioral health states they will be unable to see the patient until she has a documented normal potassium. I ordered oral potassium replacement however patient spit it out, refusing to take the medication. I ordered IV replacement. Patient will be admitted to the hospitalist until she can be evaluated by [facility]. - Lab Data Result diagrams: 03/03/18 23:57 03/03/18 23:57 Lab Results 03/03/18 03/03/18 03/03/18 Range/Units 23:55 23:55 23:57 WBC 13.2 H (4.3-11.1) K/mcL RBC 3.85 (3.82-4.97) M/mcL Hgb 13.1 (11.5-15.4) g/dL Hct 37.0 (35.3-44.9) % MCV 96.1 (83.0-100.0) fL MCH 34.0 H (28.0-33.3) pg MCHC 35.4 (31.6-35.5) g/dL RDW 12.8 (11.5-14.5) % Plt Count 343 (140-400) K/mcL MPV 8.9 L (9.4-12.4) fL Immature Gran % 0.2 (0-4) % Seg Neutrophils % 58.8 % Lymphocytes % 33.3 % Monocytes % 6.8 % Eosinophils % 0.6 % Basophils % 0.3 % Neutrophils # 7.8 (1.6-8.9) K/mcL Lymphocytes # 4.4 (0.6-4.6) K/mcL Monocytes # 0.9 (0.0-1.3) K/mcL Eosinophils # 0.1 (0.0-0.6) K/mcL Basophils # 0.0 (0.0-0.2) K/mcL Sodium (136-145) mEq/L Potassium (3.5-5.1) mEq/L Chloride (98-107) mEq/L Carbon Dioxide (23-29) mEq/L BUN (6-20) mg/dL Creatinine (0.60-1.20) mg/dL Est GFR ( Amer) (> 60) Est GFR (Non-Af Amer) (> 60) BUN/Creatinine Ratio (6-26) Glucose (70-105) mg/dL Calculated Osmolality (280-300) Calcium (8.6-10.3) mg/dL Urine Color Dark Yellow (Yellow) Urine Clarity Clear (Clear) Urine pH 6.0 (5.0-8.0) pH Units Ur Specific [place] 1.023 (1.010-1.025) Urine Protein 30 H (Neg-Trace) mg/dL Urine Glucose (UA) Normal (Normal) mg/dL Urine Ketones 15 H (Negative) mg/dL Urine Blood Small H (Negative) Urine Nitrite Negative (Negative) Urine Bilirubin Moderate H (Negative) Urine Urobilinogen Normal (Normal) mg/dL Ur Leukocyte Esterase Small H (Negative) Urine Microscopic RBC 5-15 H (0-3) per hpf Urine Microscopic WBC 5-15 H (0-3) per hpf Ur Squamous Epith Cells Many H (None-Few) per lpf Urine Bacteria None Seen (None-Few) per hpf Hyaline Casts Few (None-Few) per lpf Salicylates (15.0-30.0) mg/dL Urine Opiates Screen Negative (Oknzxx=033) ng/mL Acetaminophen (10-20) mcg/mL Ur Barbiturates Screen Negative (Bjyhhp=109) ng/mL Ur Phencyclidine Scrn Negative (Cutoff=25) ng/mL Ur Amphetamines Screen Positive H (Yusbsr=2862) ng/mL U Benzodiazepines Scrn Negative (Bsjnkf=568) ng/mL Urine Cocaine Screen Negative (Cutoff= 300) ng/mL U Marijuana (THC) Screen Positive H (Cutoff = 50) ng/mL Ur Drug Screen Interp See Below Ethyl Alcohol (Less than 10) mg/dL 03/03/18 Range/Units 23:57 WBC (4.3-11.1) K/mcL RBC (3.82-4.97) M/mcL Hgb (11.5-15.4) g/dL Hct (35.3-44.9) % MCV (83.0-100.0) fL MCH (28.0-33.3) pg MCHC (31.6-35.5) g/dL RDW (11.5-14.5) % Plt Count (140-400) K/mcL MPV (9.4-12.4) fL Immature Gran % (0-4) % Seg Neutrophils % % Lymphocytes % % Monocytes % % Eosinophils % % Basophils % % Neutrophils # (1.6-8.9) K/mcL Lymphocytes # (0.6-4.6) K/mcL Monocytes # (0.0-1.3) K/mcL Eosinophils # (0.0-0.6) K/mcL Basophils # (0.0-0.2) K/mcL Sodium 141 (136-145) mEq/L Potassium 2.9 L (3.5-5.1) mEq/L Chloride 109 H (98-107) mEq/L Carbon Dioxide 23 (23-29) mEq/L BUN 12 (6-20) mg/dL Creatinine 0.65 (0.60-1.20) mg/dL Est GFR ( Amer) > 60 (> 60) Est GFR (Non-Af Amer) > 60 (> 60) BUN/Creatinine Ratio 18 (6-26) Glucose 87 (70-105) mg/dL Calculated Osmolality 291 (280-300) Calcium 9.0 (8.6-10.3) mg/dL Urine Color (Yellow) Urine Clarity (Clear) Urine pH (5.0-8.0) pH Units Ur Specific [place] (1.010-1.025) Urine Protein (Neg-Trace) mg/dL Urine Glucose (UA) (Normal) mg/dL Urine Ketones (Negative) mg/dL Urine Blood (Negative) Urine Nitrite (Negative) Urine Bilirubin (Negative) Urine Urobilinogen (Normal) mg/dL Ur Leukocyte Esterase (Negative) Urine Microscopic RBC (0-3) per hpf Urine Microscopic WBC (0-3) per hpf Ur Squamous Epith Cells (None-Few) per lpf Urine Bacteria (None-Few) per hpf Hyaline Casts (None-Few) per lpf Salicylates < 2.5 L (15.0-30.0) mg/dL Urine Opiates Screen (Sbozil=560) ng/mL Acetaminophen < 10 L (10-20) mcg/mL Ur Barbiturates Screen (Mkkchk=506) ng/mL Ur Phencyclidine Scrn (Cutoff=25) ng/mL Ur Amphetamines Screen (Ergwfz=2140) ng/mL U Benzodiazepines Scrn (Eyjlie=983) ng/mL Urine Cocaine Screen (Cutoff= 300) ng/mL U Marijuana (THC) Screen (Cutoff = 50) ng/mL Ur Drug Screen Interp Ethyl Alcohol < 10 (Less than 10) mg/dL Psychiatric Medical Clearance - Medical Clearance Checklist Medical History: No Social History Section defined Current Vitals: Last Vital Signs Temp 97.8 F 03/04/18 05:07 Pulse 100 03/04/18 05:07 Resp 16 03/04/18 05:07 BP 137/74 03/04/18 05:07 Pulse Ox 98 03/04/18 05:07 Psychiatric Lab Panel: Drug Levels and Toxicity 03/03/18 03/03/18 23:55 23:57 Urine Opiates Screen Negative Acetaminophen < 10 L Ur Barbiturates Screen Negative Ur Phencyclidine Scrn Negative Ur Amphetamines Screen Positive H U Benzodiazepines Scrn Negative Urine Cocaine Screen Negative U Marijuana (THC) Screen Positive H Ethyl Alcohol < 10 Abnormal Labs: Abnormal lab results WBC 13.2 K/mcL (4.3-11.1) H 03/03/18 23:57 MCH 34.0 pg (28.0-33.3) H 03/03/18 23:57 MPV 8.9 fL (9.4-12.4) L 03/03/18 23:57 Potassium 2.9 mEq/L (3.5-5.1) L 03/03/18 23:57 Chloride 109 mEq/L (98-107) H 03/03/18 23:57 Urine Protein 30 mg/dL (Neg-Trace) H 03/03/18 23:55 Urine Ketones 15 mg/dL (Negative) H 03/03/18 23:55 Urine Blood Small (Negative) H 03/03/18 23:55 Urine Bilirubin Moderate (Negative) H 03/03/18 23:55 Ur Leukocyte Esterase Small (Negative) H 03/03/18 23:55 Urine Microscopic RBC 5-15 per hpf (0-3) H 03/03/18 23:55 Urine Microscopic WBC 5-15 per hpf (0-3) H 03/03/18 23:55 Ur Squamous Epith Cells Many per lpf (None-Few) H 03/03/18 23:55 Salicylates < 2.5 mg/dL (15.0-30.0) L 03/03/18 23:57 Acetaminophen < 10 mcg/mL (10-20) L 03/03/18 23:57 Ur Amphetamines Screen Positive ng/mL (Hwwkzj=7150) H 03/03/18 23:55 U Marijuana (THC) Screen Positive ng/mL (Cutoff = 50) H 03/03/18 23:55 Statement of Medical Clearance: I have evaluated the patient, reviewed diagnostic information, and certify that the patient's medical condition is sufficiently stable that transfer to the psychiatric unit does not pose a significant risk of deterioration.
[2018-03-04] MEDS ORDERED: Naloxone 0.4 MG/ML INJ IVP PRN (07:40)
[2018-03-04] MEDS ORDERED: 0.9 % Sodium Chloride 500 ML ONE (07:50)
--- NOTE | 2018-03-04 08:38 | Internal Med History&Physical ---
Date of Encounter: 03/04/18 Time of Encounter: 08:32 Internal Medicine - H&P: HPI Chief complaint: Suicidal ideation Admitted From: Home Plans for Post Hospital Care: Home History of present illness: Ms. Bernard is a 38 year old female with medical hx of anxiety, ADHD, bipolar, depression, PTSD, prior suicide attempt, schizophrenia, previous psychiatric hospitalization, tobacco abuse, polysubstance abuse. She self presented to the ER for complains of auditory hallucinations, heaing voices, homidical and suicidal ideations. At time of review, patient is completely disoriented and mumbling incoherent words. Per ER note, she is homeless and lives with different family members at different times. Compliance with [employer] meds is questionable Observing on medical floor due to hypokalemia Patient denies any symptoms at time of review, reliability is questionable Past Med Surg Social Fam HX - Past Medical History Medical history: no medical history Psychiatric history: anxiety, ADHD, bipolar, depression, PTSD, prior suicide attempt, schizophrenia, previous psychiatric hospitalization - Past Surgical History Surgical History: other Additional surgical history: right arm fracture repair - Social History Smoking Status: Current every day smoker Smokeless Tobacco Status: No Alcohol use: occasionally Drug use: marijuana Internal Medicine - H&P: Meds Buspirone HCl [Buspar] 7.5 mg PO BID 30 Days #60 tablet 02/19/18 [Rx] DULoxetine [Cymbalta] 30 mg PO DAILY 30 Days #30 capsule.dr 02/19/18 [Rx] Gabapentin [Neurontin] 400 mg PO TID 30 Days #90 capsule 02/19/18 [Rx] Paliperidone [Invega] 9 mg PO DAILY 30 Days #30 tab.er.24 02/19/18 [Rx] 3 Allergy/AdvReac Type Severity Reaction Status Date / Time No Known Allergies Allergy Verified 02/15/18 16:21 ROS unobtainable: due to mental status All Systems PM: A 10-system review of systems was performed and is negative for pertinent findings except as documented above in the HPI. - Constitutional Vitals: Temp Pulse Resp BP Pulse Ox 98.8 F 87 16 95/66 98 03/04/18 06:51 03/04/18 06:51 03/04/18 06:51 03/04/18 06:51 03/04/18 06:34 General appearance: Present: A&O X 0 Exam: see exam below - Head Head exam: Present: atraumatic, normocephalic - Eye Eye exam: Present: PERRL, conjuntiva pink, sclera anicteric Pupils: Present: PERRL - Neck Neck exam general surgery: Present: supple, trachea midline. Absent: lymphadenopathy - Respiratory Respiratory exam: Present: CTAB. Absent: accessory muscle use, rales, rhonchi, wheezes - Cardiovascular Cardiovascular exam: Present: RRR, +S1, +S2. Absent: diastolic murmur, gallop, rubs, systolic murmur - GI/Abdominal GI/Abdominal exam: Present: normal bowel sounds, soft, no peritoneal signs. Absent: distended, tenderness - Extremities Exam Extremities exam: Present: warm, radial pulses palpable and symmetrical. Absent : calf tenderness, cyanotic, pedal edema - Neurological Exam Neurological exam: Present: altered, CN II-XII intact, no focal deficits. Absent: pronater drift, facial droop, speech deficit - Skin Skin exam: Present: dry, intact Internal Med - H&P Results - Labs CBC & Chem 7: 03/03/18 23:57 03/03/18 23:57 - Assessment and plan (1) Hypokalemia Current Visit: Yes Status: Acute Assessment and plan: replace IV and PO No evidence of GI or renal loss, likely due to poor oral intake Rpt Chem a.m, check Mag (2) Suicidal ideation Current Visit: Yes Status: Acute Assessment and plan: Psych eval, continue 1: 1 sitting (3) Anxiety Current Visit: Yes Status: Chronic Assessment and plan: continue home meds (4) Homicidal ideation Current Visit: Yes Status: Acute Assessment and plan: Psych eval, continue 1: 1 sitting (5) Schizoaffective disorder Current Visit: Yes Status: Chronic Assessment and plan: resume home meds psych eval Qualifiers: Schizoaffective disorder type: bipolar Qualified Code(s): F25.0 - Schizoaffective disorder, bipolar type - Time Spent With Patient Total time spent is greater than 50% in coordination of care (as documented) at patient's floor/unit and/or counseling patient:
[2018-03-04] MEDS ORDERED: Gabapentin 400 MG CAPSULE PO SCH (09:00)
--- NOTE | 2018-03-04 09:43 | Event Note ---
Date of Encounter: 03/04/18 Time of Encounter: 09:41 Patient placed on obs for suicidal and homicidal ideation I have spoken with the psychiatrist paraprofessional aide , Dr. Marie about the current situation Per RN, the patient is now waking up and attempting to leave Upon evaluation, the psychiatrist believes the patient does not meet criteria to be pink slipped for mental health reasons
[2018-03-04] MEDS ORDERED: Acetaminophen 325 MG TABLET PO PRN (12:20)
--- NOTE | 2018-03-04 13:01 | Consult Note ---
Date of Encounter: 03/04/18 Time of Encounter: 12:50 Assessment & Recommendation (1) Substance-induced psychotic disorder Current visit: Yes Status: Acute Assessment & Recommendation: Suspect presentation is related to methamphetamine abuse. Recommend restarting antipsychotic from 1A discharge a couple of weeks ago. Also recommend client be referred for inpatient rehab to help her with her addiction issues. Client is now alert. She is denying SI/HI. Has stable housing. Does not meet pink slip criteria at this time. History of Present Illness Requesting Physician: Elder Aggarawl MD Reason for consult: Sitter 1:1 History of present illness: Ms. Bernard is a 38 year old female who presented to the ER endorsing SI/HI/AH/VH. She was mumbling her words and could not give a reliable history. On eval today she is much more alert. Remembered this sports book writer from the last time she was in the hospital. She is denying SI/HI today. Admits to some psychosis but her tox screen is positive for methamphetamines. Has a historical diagnosis of Schizoaffective Disorder but suspect her presentation is more related to substance abuse. Client was just discharged from 1[facility] for psychosis a couple of weeks ago. She cleared very quickly on medications. Client admits she has not been taking medications at home nor has she followed up with a provider. Anticipate she will clear quickly again if restarted on her discharge meds from a couple of weeks ago. Client is denying she wants readmission to 1A. At this time she does not meet pink slip criteria as she is denying thoughts of harm to self or others. She is not agitated with this sports book writer. She is alert. Reports she has been living with her father which was true at the time of her admission a couple of weeks ago. He did not have safety concerns for her. Recommend she consider inpatient rehab as her psychosis will not improve or worsen if she continues her current drug use. CC: Elder Aggarwal MD Past Med Surg Social Fam HX - Past Medical History Medical history: no medical history - Past Psychiatric History Psychiatric history: Reports: previous psychiatric hospitalization Family psychiatric history: Unknown Family History of Suicide: Unknown - Past Surgical History Surgical History: other - Social History Smoking Status: Current every day smoker Smokeless Tobacco Status: No Alcohol use: occasionally Drug use: marijuana Medications & Allergies Buspirone HCl [Buspar] 7.5 mg PO BID 30 Days #60 tablet 02/19/18 [Rx] DULoxetine [Cymbalta] 30 mg PO DAILY 30 Days #30 capsule. 02/19/18 [Rx] Gabapentin [Neurontin] 400 mg PO TID 30 Days #90 capsule 02/19/18 [Rx] Paliperidone [Invega] 9 mg PO DAILY 30 Days #30 tab.er.24 02/19/18 [Rx] 3 Allergy/AdvReac Type Severity Reaction Status Date / Time No Known Allergies Allergy Verified 02/15/18 16:21 Review of Systems Constitutional: Denies: fever, chills, weakness, weight change Eyes: Denies: eye pain, vision change Ears, Nose, Throat: Denies: ear pain, throat pain, dental pain, hearing loss, congestion Cardiovascular: Denies: chest pain, palpitations, dyspnea on exertion Respiratory: Denies: cough, dyspnea, wheezes Gastrointestinal: Denies: abdominal pain, nausea, vomiting, diarrhea, constipation Genitourinary female: Denies: urgency, dysuria, frequency, abnormal menses, dyspareunia Musculoskeletal: Denies: joint swelling, joint pain Integumentary: Denies: rash, lesions, pruritus Neurological: Denies: headache, weakness, numbness, memory loss Endocrine: Denies: fatigue, heat or cold intolerance Hematologic/Lymphatic: Denies: easy bruising, lymphadenopathy Allergic/Immunologic: Denies: urticaria, itchy eyes Psychiatry Exam - Constitutional Vitals: Temp Pulse Resp BP Pulse Ox 98.8 F 87 16 95/66 98 03/04/18 06:51 03/04/18 06:51 03/04/18 06:51 03/04/18 06:51 03/04/18 06:34 General appearance: unkempt, disheveled - Musculoskeletal Gait: normal Station: relaxed Strength & Tone: normal for patient - Psychiatric Patient Orientation: Yes Person, Yes Time, Yes Place Level of alertness: Alert Behavior: calm, cooperative Psychomotor activity: Normal Eye Contact: Maintains Eye Contact Mood Description: Irritable Affect description: congruent with mood Speech Volume: Normal Speech pattern: normal rate, normal rhythm, normal tone, fluent, spontaneous Language & Vocabulary: consistent with education Thought Process: Linear Thought Content: No Suicidal ideation, No Homicidal ideation, No Overt delusions Perceptual Disturbances: Yes Auditory hallucinations Attention Span Ability: Capable of Focused Attention Memory Description: Immediate Intact, Recent Impaired, Remote Intact Patient Reliability: Not Reliable Historian Fund of knowledge: Yes abstraction ability, Yes aware of current events Intelligence Estimate: Average Judgment: Limited Insight: Minimal Results - Labs Labs: Laboratory Last Values WBC 13.2 K/mcL (4.3-11.1) H 03/03/18 23:57 RBC 3.85 M/mcL (3.82-4.97) 03/03/18 23:57 Hgb 13.1 g/dL (11.5-15.4) 03/03/18 23:57 Hct 37.0 % (35.3-44.9) 03/03/18 23:57 MCV 96.1 fL (83.0-100.0) 03/03/18 23:57 MCH 34.0 pg (28.0-33.3) H 03/03/18 23:57 MCHC 35.4 g/dL (31.6-35.5) 03/03/18 23:57 RDW 12.8 % (11.5-14.5) 03/03/18 23:57 Plt Count 343 K/mcL (140-400) 03/03/18 23:57 MPV 8.9 fL (9.4-12.4) L 03/03/18 23:57 Immature Gran % 0.2 % (0-4) 03/03/18 23:57 Seg Neutrophils % 58.8 % 03/03/18 23:57 Lymphocytes % 33.3 % 03/03/18 23:57 Monocytes % 6.8 % 03/03/18 23:57 Eosinophils % 0.6 % 03/03/18 23:57 Basophils % 0.3 % 03/03/18 23:57 Neutrophils # 7.8 K/mcL (1.6-8.9) 03/03/18 23:57 Lymphocytes # 4.4 K/mcL (0.6-4.6) 03/03/18 23:57 Monocytes # 0.9 K/mcL (0.0-1.3) 03/03/18 23:57 Eosinophils # 0.1 K/mcL (0.0-0.6) 03/03/18 23:57 Basophils # 0.0 K/mcL (0.0-0.2) 03/03/18 23:57 Sodium 141 mEq/L (136-145) 03/03/18 23:57 Potassium 2.9 mEq/L (3.5-5.1) L 03/03/18 23:57 Chloride 109 mEq/L (98-107) H 03/03/18 23:57 Carbon Dioxide 23 mEq/L (23-29) 03/03/18 23:57 BUN 12 mg/dL (6-20) 03/03/18 23:57 Creatinine 0.65 mg/dL (0.60-1.20) 03/03/18 23:57 Est GFR ( Amer) > 60 (> 60) 03/03/18 23:57 Est GFR (Non-Af Amer) > 60 (> 60) 03/03/18 23:57 BUN/Creatinine Ratio 18 (6-26) 03/03/18 23:57 Glucose 87 mg/dL (70-105) 03/03/18 23:57 Calculated Osmolality 291 (280-300) 03/03/18 23:57 Calcium 9.0 mg/dL (8.6-10.3) 03/03/18 23:57 Urine Color Dark Yellow (Yellow) 03/03/18 23:55 Urine Clarity Clear (Clear) 03/03/18 23:55 Urine pH 6.0 pH Units (5.0-8.0) 03/03/18 23:55 Ur Specific [place] 1.023 (1.010-1.025) 03/03/18 23:55 Urine Protein 30 mg/dL (Neg-Trace) H 03/03/18 23:55 Urine Glucose (UA) Normal mg/dL (Normal) 03/03/18 23:55 Urine Ketones 15 mg/dL (Negative) H 03/03/18 23:55 Urine Blood Small (Negative) H 03/03/18 23:55 Urine Nitrite Negative (Negative) 03/03/18 23:55 Urine Bilirubin Moderate (Negative) H 03/03/18 23:55 Urine Urobilinogen Normal mg/dL (Normal) 03/03/18 23:55 Ur Leukocyte Esterase Small (Negative) H 03/03/18 23:55 Urine Microscopic RBC 5-15 per hpf (0-3) H 03/03/18 23:55 Urine Microscopic WBC 5-15 per hpf (0-3) H 03/03/18 23:55 Ur Squamous Epith Cells Many per lpf (None-Few) H 03/03/18 23:55 Urine Bacteria None Seen per hpf (None-Few) 03/03/18 23:55 Hyaline Casts Few per lpf (None-Few) 03/03/18 23:55 Salicylates < 2.5 mg/dL (15.0-30.0) L 03/03/18 23:57 Urine Opiates Screen Negative ng/mL (Arjzkp=423) 03/03/18 23:55 Acetaminophen < 10 mcg/mL (10-20) L 03/03/18 23:57 Ur Barbiturates Screen Negative ng/mL (Cckusj=431) 03/03/18 23:55 Ur Phencyclidine Scrn Negative ng/mL (Cutoff=25) 03/03/18 23:55 Ur Amphetamines Screen Positive ng/mL (Dhwtgh=4626) H 03/03/18 23:55 U Benzodiazepines Scrn Negative ng/mL (Vwhdll=428) 03/03/18 23:55 Urine Cocaine Screen Negative ng/mL (Cutoff= 300) 03/03/18 23:55 U Marijuana (THC) Screen Positive ng/mL (Cutoff = 50) H 03/03/18 23:55 Ur Drug Screen Interp See Below 03/03/18 23:55 Ethyl Alcohol < 10 mg/dL (Less than 10) 03/03/18 23:57 Consult Discharge Plan - Plan Referrals: NONE,PCP [Primary Care Provider] -
[2018-03-04 14:37] VITALS: BP 98/65
--- NOTE | 2018-03-04 15:03 | Event Note ---
Date of Encounter: 03/04/18 Time of Encounter: 15:03 Patient accepted and transferred to for psych
[2018-03-05] MEDS ORDERED: Nicotine 21 MG PATCH.TD24 TD SCH (09:00)
== END 2018-03-04 15:00 ==
LOC: EMEROOARM 23:06 → 3BNU 23:06
PROVIDERS: ADMIT Internal Medicine; ATTEND Pediatrics

== ENCOUNTER 2018-03-04 14:58 | Inpatient (IN) ==
[2018-03-04] MEDS ORDERED: MOM Conc 10 ML UD.LIQ PO PRN (15:20)
[2018-03-04] MEDS ORDERED: Mag Hydrox/Al Hydrox/Simeth 30 ML UDC PO PRN (15:20)
[2018-03-04] MEDS ORDERED: traZODone 50 MG TABLET PO PRN (15:20)
[2018-03-04] MEDS ORDERED: *HR* LORazepam 2 MG/ML VIAL IM PRN (15:20)
[2018-03-04] MEDS ORDERED: Haloperidol Lactate 5 MG/ML VIAL IM PRN (15:20)
[2018-03-04] MEDS ORDERED: *HR* LORazepam 1 MG TABLET PO PRN (15:20)
[2018-03-04] MEDS ORDERED: Nicotine 21 MG PATCH.TD24 TD SCH (15:30)
[2018-03-04] MEDS: Gabapentin 400 MG CAPSULE PO SCH ×2 (16:13→23:00)
[2018-03-04] MEDS: Ibuprofen 400 MG TABLET PO PRN (17:35)
[2018-03-05] MEDS: hydrOXYzine pamoate 25 MG CAPSULE PO PRN (07:52)
[2018-03-05] MEDS: Nicotine 2 MG GUM BC PRN ×2 (08:45→17:47)
[2018-03-05] MEDS: Gabapentin 400 MG CAPSULE PO SCH ×4 (08:45→21:21)
--- NOTE | 2018-03-05 10:52 | Psychiatry History & Physical ---
Date of Encounter: 03/05/18 Time of Encounter: 10:30 History of Present Illness Patient Stated Chief Complaint: I was suicidal and homocidal and hearing Medicare Admission Attestation: For traditional Medicare patients the provided hospital inpatient services are reasonable and necessary and in the case of services not specified as inpatient -only under 42 CFR 419.22 (n), that they are appropriately provided as inpatient services in accordance 42 CFR 412.3. For Critical Access Hospital the patient may reasonably be expected to be discharged or transferred to a hospital within 96 hours after admission to the Critical Access Hospital. Admitted From: Emergency Dept Plans for Post Hospital Care: Home History of Present Illness: Ms. Bernard is a 38 year old female Chief complaint: I was suicidal I was homicidal and it was hearing voices. History of present illness. The patient is a questionable historian. She reports that she was discharged from this unit on February 19. She reports that she took her medicines she did not take Neurontin because it was apparently not dispensed to her. She did not go to her initial appointment in [place]. She denies that she uses methamphetamine yet amphetamines were positive in the urine. The patient continued to use marijuana. The patient complained of foot pain. The reader is referred to the most recent notes and consults that indicate bizarre and psychotic behavior even threatening behavior and the patient hit her head against the wall and his suicide attempt leaving a superficial hematoma. Today the patient reports that she has attention deficit disorder and should like to get on a stimulant. She denies abuse of drugs. Acknowledges some noncompliance says that she can move back with her father. The patient signed a voluntary patient to come to this unit. She did agree to an injection of paliperidone Past Med Surg Social Fam HX - Past Medical History Source: old records reviewed Medical history: no medical history - Past Psychiatric History Psychiatric history: Reports: previous psychiatric hospitalization - Past Surgical History Surgical History: other - Social History Smoking Status: Current every day smoker Smokeless Tobacco Status: No Alcohol use: occasionally Drug use: marijuana, methamphetamine Occupational status: disabled Current living situation: Home, With Family Activity Level: Independent ambulation Recent Out of Country Travel Within the Last 8 Weeks: No Exposure or Possible Exposure to Illness During Travel: No - Family History Father History Unknown: Yes Medications & Allergies Buspirone HCl [Buspar] 7.5 mg PO BID 30 Days #60 tablet 02/19/18 [Rx] DULoxetine [Cymbalta] 30 mg PO DAILY 30 Days #30 capsule. 02/19/18 [Rx] Gabapentin [Neurontin] 400 mg PO TID 30 Days #90 capsule 02/19/18 [Rx] Paliperidone [Invega] 9 mg PO DAILY 30 Days #30 tab.er.24 02/19/18 [Rx] 3 Allergy/AdvReac Type Severity Reaction Status Date / Time No Known Allergies Allergy Verified 02/15/18 16:21 Review of Systems Psychiatric: Reports: suicidal ideation, homicidal ideation, auditory hallucinations, difficulty concentrating Exam - HEENT Head exam IM: Present: atraumatic Eye exam IM: Present: EOMI, normal appearance, PERRL ENT exam IM: Present: normal exam - Neurological Neurological exam: Present: CN II-XII intact - Respiratory Respiratory exam IM: Present: CTAB - GI/Abdominal GI/Abdominal exam IM: Present: normal bowel sounds, soft. Absent: tenderness - Extremities Extremities exam IM: Present: full ROM - Skin Skin exam IM: Present: dry, warm - Additional Information Additional Information: Exam performed in the presence of female ironing machine operator - Constitutional Vitals: Temp Pulse Resp BP 98.6 F 99 16 96/68 03/05/18 08:50 03/05/18 08:50 03/05/18 08:50 03/05/18 08:50 General appearance: age & developmentally appropriate, well-groomed, well- nourished - Musculoskeletal Gait: normal Station: relaxed Strength & Tone: normal for patient - Psychiatric Patient Orientation: Yes Person, Yes Time, Yes Place Level of alertness: Alert Behavior: calm, cooperative Psychomotor activity: Normal Eye Contact: Maintains Eye Contact Affect description: congruent with mood, full range Speech Volume: Normal Speech pattern: normal rate, normal rhythm, normal tone, fluent, spontaneous Language & Vocabulary: consistent with education Thought Process: Linear, Thought Blocking Thought Content: Yes Suicidal ideation, Yes Homicidal ideation, No Overt delusions Perceptual Disturbances: No Auditory hallucinations, No Visual hallucinations Attention Span Ability: Capable of Sustained Attention Memory Description: Grossly Intact Patient Reliability: Reliable Historian Fund of knowledge: Yes abstraction ability, Yes average, Yes aware of current events Intelligence Estimate: Below Average Judgment: Limited Insight: Minimal Assessment and Plan (1) Cannabis dependence with psychotic disorder with hallucinations Current visit: Yes Status: Acute Plan: Admit inpatient for safety and stabilization, Close observation, Suicide Precautions per unit protocol, Encourage participation in unit milieu Risks, benefits, side effects, alternatives discussed w/pt: Yes Patient agreeable to treatment: Yes Plans for Post Hospital Care: Home (2) 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 Current visit: Yes Status: Acute Plan: Encourage participation in unit milieu, Group Therapy, Monitor sleep, Monitor appetite, Secure weapons Risks, benefits, side effects, alternatives discussed w/pt: Yes Patient agreeable to treatment: Yes Plans for Post Hospital Care: Home (3) 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 Current visit: Yes Status: Acute Plan: Admit inpatient for safety and stabilization, Close observation, Suicide Precautions per unit protocol, Encourage participation in unit milieu Risks, benefits, side effects, alternatives discussed w/pt: Yes Patient agreeable to treatment: Yes Plans for Post Hospital Care: Home (4) Patient's noncompliance with other medical treatment and regimen Current visit: Yes Status: Acute Plan: Admit inpatient for safety and stabilization, Close observation, Encourage participation in unit milieu, Family/Supportive other meeting Risks , benefits, side effects, alternatives discussed w/pt: Yes Patient agreeable to treatment: Yes Plans for Post Hospital Care: Home (5) Chronic pain syndrome Current visit: Yes Status: Acute Plan: Admit inpatient for safety and stabilization, Encourage participation in unit milieu, Group Therapy, Monitor sleep, Monitor appetite Risks, benefits, side effects, alternatives discussed w/pt: Yes Patient agreeable to treatment : Yes Plans for Post Hospital Care: Home (6) Suicidal ideation Current visit: No Status: Acute Plan: Admit inpatient for safety and stabilization, Close observation, Suicide Precautions per unit protocol, Secure weapons Risks, benefits, side effects, alternatives discussed w/pt: Yes Patient agreeable to treatment: Yes Plans for Post Hospital Care: Home (7) Homicidal ideation Current visit: No Status: Acute Plan: Admit inpatient for safety and stabilization, Close observation, Secure weapons, Family/Supportive other meeting Risks, benefits, side effects, alternatives discussed w/pt: Yes Patient agreeable to treatment: Yes Plans for Post Hospital Care: Home (8) Schizoaffective disorder Current visit: No Status: Acute Plan: Admit inpatient for safety and stabilization, Close observation, Suicide Precautions per unit protocol, Encourage participation in unit milieu, Group Therapy, Monitor sleep, Monitor appetite, Secure weapons, Family/Supportive other meeting Risks, benefits, side effects, alternatives discussed w/pt: Yes Patient agreeable to treatment: Yes Plans for Post Hospital Care: Home Estimated Length of Stay (Days): 8 Qualifiers: Schizoaffective disorder type: bipolar Qualified Code(s): F25.0 - Schizoaffective disorder, bipolar type
[2018-03-05] MEDS: traZODone 50 MG TABLET PO SCH (21:23)
[2018-03-06] MEDS: Gabapentin 400 MG CAPSULE PO SCH ×3 (08:45→21:05)
--- NOTE | 2018-03-06 10:07 | Psychiatry Progress Note ---
Date of Encounter: 03/06/18 Time of Encounter: 10:00 Subjective Interval history: ID the patient's a 38-year-old white female.. She complains of attention deficit disorder Chief complaint when he can give me that Demetri. I have trouble with attention missed my appointment History of present illness: The patient reports that she had difficulty making her appointment she may have lost the paperwork. She did not get her medicines from the pharmacy. She has been intrusive on the unit but agreed to take the ADHD screening test read out of 7 questions she reported often or sometimes on 4 or more of this suggesting a positive score for the possibility of attention deficit disorder. Nonetheless the patient's primary psychiatric disorder is such that she is irritable. She is asked to report to change pharmacies in order to help with her discharge planning. She did not want to change or other regimens of medicines but she did agree to a trial of the medicine Tenex Guafascine. She was told that this medicines FDA approved for the treatment of attention deficit disorder. She was told the side effects she reports the clonidine was not helpful. Demetri is not on the hospital formulary. The patient and I talked about abstinence from alcohol and drugs abuse. She says that she has decided to be free of alcohol. I talked to her about naltrexone. She said that it did not help her in the past. Review of Systems Psychiatric: Reports: homicidal ideation, auditory hallucinations, difficulty concentrating Results - Vital Signs Vital Signs: Temp Pulse Resp BP 98.0 F 98 16 99/70 03/06/18 09:00 03/06/18 09:00 03/05/18 21:00 03/06/18 09:00 Assessment and Plan (1) Cannabis dependence with psychotic disorder with hallucinations Current visit: Yes Status: Chronic Plan: Continue hospitalization, Close observation, Suicide Precautions per unit protocol, Encourage participation in unit milieu Risks, benefits, side effects , alternatives discussed w/pt: Yes Patient agreeable to treatment: Yes (2) 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 Current visit: Yes Status: Acute Plan: Continue hospitalization, Close observation, Suicide Precautions per unit protocol, Encourage participation in unit milieu Risks, benefits, side effects , alternatives discussed w/pt: Yes Patient agreeable to treatment: Yes (3) 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 Current visit: Yes Status: Acute Plan: Group Therapy, Monitor sleep, Secure weapons Risks, benefits, side effects, alternatives discussed w/pt: Yes Patient agreeable to treatment: Yes (4) Patient's noncompliance with other medical treatment and regimen Current visit: Yes Status: Acute Plan: Family/Supportive other meeting Risks, benefits, side effects, alternatives discussed w/pt: Yes Patient agreeable to treatment: Yes (5) Chronic pain syndrome Current visit: Yes Status: Chronic Plan: Continue hospitalization, Close observation, Suicide Precautions per unit protocol, Encourage participation in unit milieu Risks, benefits, side effects , alternatives discussed w/pt: Yes Patient agreeable to treatment: Yes (6) Suicidal ideation Current visit: No Status: Acute Plan: Group Therapy, Monitor sleep, Monitor appetite Risks, benefits, side effects, alternatives discussed w/pt: Yes Patient agreeable to treatment: Yes (7) Homicidal ideation Current visit: No Status: Acute Plan: Suicide Precautions per unit protocol, Monitor appetite Risks, benefits , side effects, alternatives discussed w/pt: Yes Patient agreeable to treatment: Yes (8) Schizoaffective disorder Current visit: No Status: Acute Plan: Continue hospitalization, Close observation, Suicide Precautions per unit protocol, Encourage participation in unit milieu, Group Therapy, Monitor sleep, Monitor appetite Risks, benefits, side effects, alternatives discussed w/pt: Yes Patient agreeable to treatment: Yes Qualifiers: Schizoaffective disorder type: bipolar Qualified Code(s): F25.0 - Schizoaffective disorder, bipolar type Consult Discharge Plan - Plan Referrals: NONE,PCP [Primary Care Provider] - Psychiatry Exam - Constitutional Vitals: Temp Pulse Resp BP 98.0 F 98 16 99/70 03/06/18 09:00 03/06/18 09:00 03/05/18 21:00 03/06/18 09:00 General appearance: age & developmentally appropriate, well-groomed, well- nourished, thin - Musculoskeletal Gait: normal Station: relaxed Strength & Tone: normal for patient - Psychiatric Patient Orientation: Yes Person, Yes Time, Yes Place Level of alertness: Alert Behavior: calm, impulsive Psychomotor activity: Normal Eye Contact: Maintains Eye Contact Mood Description: Expansive Affect description: congruent with mood, full range Speech Volume: Normal Speech pattern: normal rate, normal rhythm, normal tone, fluent, spontaneous Language & Vocabulary: consistent with education Thought Process: Linear, Goal Oriented Thought Content: No Suicidal ideation, No Homicidal ideation, No Overt delusions Perceptual Disturbances: No Auditory hallucinations, No Visual hallucinations Attention Span Ability: Capable of Focused Attention Memory Description: Grossly Intact Patient Reliability: Reliable Historian Fund of knowledge: Yes abstraction ability, Yes aware of current events Intelligence Estimate: Average Judgment: Limited Insight: Minimal
[2018-03-06] MEDS: Nicotine 2 MG GUM BC PRN ×2 (10:16→16:20)
[2018-03-06] MEDS: Ibuprofen 400 MG TABLET PO PRN (11:02)
[2018-03-06] MEDS: traZODone 50 MG TABLET PO SCH (21:05)
[2018-03-07] MEDS: Gabapentin 400 MG CAPSULE PO SCH ×3 (09:25→20:47)
[2018-03-07] MEDS: Ibuprofen 400 MG TABLET PO PRN (11:01)
[2018-03-07] MEDS: Nicotine 2 MG GUM BC PRN ×2 (11:09→15:59)
--- NOTE | 2018-03-07 11:37 | Psychiatry Progress Note ---
Date of Encounter: 03/07/18 Time of Encounter: 11:15 Subjective Interval history: ID patient is a 38-year-old white female. History of present illness the patient reports that her voices are better and she denies being irritable. She is here as a voluntary patient. She is presented the following plan 1 she would go to her father's house where she would get her wallet and possessions she would not stay overnight. 2 she would go live with her sister jai. 3 she would be compliant with her appointments and take her medicines as prescribed for the patient has noted some improvement with Tenex and would like to stay on the same dose. She denies ever threatening anybody. She notes that she has a boyfriend who has a relatively clean house. 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 Current visit: Yes Status: Acute Risks, benefits, side effects, alternatives discussed w/pt: Yes Patient agreeable to treatment: Yes (3) 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 Current visit: Yes Status: Acute Risks, benefits, side effects, alternatives discussed w/pt: Yes Patient agreeable to treatment: Yes (4) Patient's noncompliance with other medical treatment and regimen Current visit: Yes Status: Acute Plan: Family/Supportive other meeting Risks, benefits, side effects, alternatives discussed w/pt: Yes Patient agreeable to treatment: Yes (5) Chronic pain syndrome Current visit: Yes Status: Chronic Risks, benefits, side effects, alternatives discussed w/pt: Yes Patient agreeable to treatment: Yes (6) Suicidal ideation Current visit: No Status: Acute Risks, benefits, side effects, alternatives discussed w/pt: Yes Patient agreeable to treatment: Yes (7) Homicidal ideation Current visit: No Status: Acute Risks, benefits, side effects, alternatives discussed w/pt: Yes Patient agreeable to treatment: Yes (8) Schizoaffective disorder Current visit: No Status: Acute Plan: Continue hospitalization, Close observation, Suicide Precautions per unit protocol, Encourage participation in unit milieu, Group Therapy, Monitor sleep, Monitor appetite, Family/Supportive other meeting Risks, benefits, side effects, alternatives discussed w/pt: Yes Patient agreeable to treatment: Yes Qualifiers: Schizoaffective disorder type: bipolar Qualified Code(s): F25.0 - Schizoaffective disorder, bipolar type Consult Discharge Plan - Plan Referrals: NONE,PCP [Primary Care Provider] - Psychiatry Exam - Constitutional Vitals: Temp Pulse Resp BP 97.6 F 88 20 95/62 03/07/18 09:00 03/07/18 09:00 03/07/18 09:00 03/07/18 09:00 General appearance: age & developmentally appropriate, well-groomed, well- nourished - Musculoskeletal Gait: normal Station: relaxed Strength & Tone: normal for patient - Psychiatric Patient Orientation: Yes Person, Yes Time, Yes Place Level of alertness: Alert Behavior: calm, impulsive, talkative Psychomotor activity: Normal Eye Contact: Maintains Eye Contact Mood Description: Anxious, Labile Affect description: congruent with mood, full range, anxious Speech Volume: Normal Speech pattern: normal rate, normal rhythm, normal tone, fluent, spontaneous Language & Vocabulary: consistent with education Thought Process: Linear, Goal Oriented Thought Content: No Suicidal ideation, No Homicidal ideation, No Overt delusions Perceptual Disturbances: Yes Auditory hallucinations, No Visual hallucinations Attention Span Ability: Capable of Sustained Attention Memory Description: Grossly Intact Patient Reliability: Questionable Historian Fund of knowledge: Yes average Intelligence Estimate: Average Judgment: Fair Insight: Partial
[2018-03-07] MEDS: hydrOXYzine pamoate 25 MG CAPSULE PO PRN (16:57)
[2018-03-07] MEDS: traZODone 50 MG TABLET PO SCH (20:47)
[2018-03-08 09:07] VITALS: BP 87/84
[2018-03-08] MEDS: Nicotine 2 MG GUM BC PRN (09:54)
[2018-03-08] MEDS: Gabapentin 400 MG CAPSULE PO SCH (10:06)
[2018-03-08] MEDS ORDERED: Gabapentin 400 MG CAPSULE PO ONE (12:53)
--- NOTE | 2018-03-08 13:51 | Psychiatry Progress Note ---
Date of Encounter: 03/09/18 Time of Encounter: 13:30 Subjective Interval history: The patient was advised not to snort divert or misuse gabapentin. She will be prescribed gabapentin however she was given a diagnosis of drug abuse of other substances F 55.8 because of the high likelihood that she has been abusing or snorting gabapentin when this was not medically directed are indicated. Will be given only a 14 day supply of this medicine in order to further evaluate her potential abuse of it on an outpatient basis Review of Systems Psychiatric: Reports: depression, anxiety, homicidal ideation, auditory hallucinations, difficulty concentrating Results - Vital Signs Vital Signs: Temp Pulse Resp BP 98.5 F 78 16 87/84 03/08/18 09:00 03/08/18 09:00 03/08/18 09:00 03/08/18 09:00 Assessment and Plan (1) Cannabis dependence with psychotic disorder with hallucinations Status: Chronic Risks, benefits, side effects, alternatives discussed w/pt: Yes Patient agreeable to treatment: Yes (2) 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 Status: Acute Risks, benefits, side effects, alternatives discussed w/pt: Yes Patient agreeable to treatment: Yes (3) 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 Status: Acute Risks, benefits, side effects, alternatives discussed w/pt: Yes Patient agreeable to treatment: Yes (4) Patient's noncompliance with other medical treatment and regimen Status: Chronic Risks, benefits, side effects, alternatives discussed w/pt: Yes Patient agreeable to treatment: Yes (5) Chronic pain syndrome Status: Chronic Risks, benefits, side effects, alternatives discussed w/pt: Yes Patient agreeable to treatment: Yes (6) Suicidal ideation Status: Acute Risks, benefits, side effects, alternatives discussed w/pt: Yes Patient agreeable to treatment: Yes (7) Homicidal ideation Status: Acute Risks, benefits, side effects, alternatives discussed w/pt: Yes Patient agreeable to treatment: Yes (8) Schizoaffective disorder Status: Acute Risks, benefits, side effects, alternatives discussed w/pt: Yes Patient agreeable to treatment: Yes Qualifiers: Schizoaffective disorder type: bipolar Qualified Code(s): F25.0 - Schizoaffective disorder, bipolar type Consult Discharge Plan - Plan Instructions: Brief Psychotic Disorder (DC), Anxiety (DC) Referrals: [facility] [Outside] - 03/15/18 10:00 am (The above appointment is with Callie Neal, counselor at [facility]. Your first appointment will be very thorough and the total appointment time will take between two and three hours. You will be meeting with a counselor and a nurse, and developing a treatment plan. Please arrive one hour before your scheduled appointment to complete paperwork. You will receive follow- up appointments for on-going services, which could include community support, mental health and substance abuse counseling, groups/partial hospitalization programming, medication assisted treatment, and psychiatric medication management. Please bring the following with you to your first visit to the clinic: 1) proof of household income (two consecutive pay stubs, social security award letter, bank statement, statement letter from [facility], child support statement, IRS 1040 or W2 form, or a statement from the person who financially supports you stating they help provide for your basic needs), 2) proof of residency (drivers license, a piece of mail showing your address, a statement from person you live with verifying you live at their address), 3) your social security card, 4) photo ID, and 5) your insurance card (if you have commercial insurance you must call to obtain a prior authorization number before you arrive to your first appointment). If you do not bring these items, you will not be seen.) [facility] [Outside] - 04/18/18 10:00 am (The above appointment is with Pamela Mckenzie for outpatient psychiatric assessment and medication management services. Please arrive 30 minutes early for first time psychiatry appointments, and 15 minutes early for follow-up psychiatry appointments. Please bring your photo ID (bring proof of address if you do not have an ID), insurance card and medication list. IF YOU DO NOT BRING YOUR INSURANCE CARD YOU CANNOT BE SEEN. The above appointment(s) reflects first availability. You may contact the office regularly to check for cancellations that may allow you to be seen sooner. ) Prescriptions: Buspirone HCl [Buspar] 10 mg PO BID 14 Days #30 tablet Cyprohepatdine [Periactin] 4 mg PO HS 14 Days #14 tablet DULoxetine [Cymbalta] 30 mg PO DAILY 14 Days #14 capsule. Gabapentin [Neurontin] 400 mg PO TID 10 Days #30 capsule Guanfacine [Tenex] 1 mg PO HS 14 Days #14 tablet Paliperidone [Invega] 9 mg PO DAILY 30 Days #30 tab.er.24 traZODone [TraZODone] 100 mg PO HS 14 Days #14 tablet Psychiatry Exam - Constitutional Vitals: Temp Pulse Resp BP 98.5 F 78 16 87/84 03/08/18 09:00 03/08/18 09:00 03/08/18 09:00 03/08/18 09:00
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
[2018-03-08] MEDS ORDERED: Gabapentin 400 MG CAPSULE PO SCH (15:00)
[2018-03-08] MEDS ORDERED: Cyprohepatdine 4 MG TABLET PO SCH (21:00)
== END 2018-03-08 16:20 | disposition home or self-care (01) | DRG 897 ==
LOC: 1ANU 15:10 → SUATTDRO 15:10 → 1ANU 16:08
PROVIDERS: ADMIT Psychiatry & Neurology Psychiatry; ATTEND Psychiatry & Neurology Forensic Psychiatry